=== PATIENT | female | born 1960 | race African-American/Black ===

== ENCOUNTER 2016-06-01 12:29 | Emergency (ER) | payer MEDICAID | END 2016-06-01 15:54 | disposition home or self-care (01) | LOC: D.ER 12:29 | DX: F20.9 Schizophrenia, unspecified (principal); E87.6 Hypokalemia ==

== ENCOUNTER 2016-10-04 21:25 | Emergency (ER) | payer MEDICAID ==
[2016-10-04 22:10] LABS: BASOPHILS 0.1 % (0-2); EOSINOPHILS 0.2 % (0-7); HEMATOCRIT 42.6 % (36.0-48.0); HEMOGLOBIN 14.7 g/dL (12-16); IMMATURE GRANULOCYTES 0.2 % (0-5); LYMPHOCYTES 22.4 % (15-50); MCH 27.8 pg (26.0-34.0); MCHC 34.5 g/dL (31.0-37.0); MCV 80.5 fL (80.0-100.0); MEAN PLATELET VOLUME 10.3 fL (7.4-10.4); MONOCYTES 4.9 % (2-11); NEUTROPHILS 72.2 % (40-80); PLATELET COUNT 196 10x3/uL (130-400); RBC 5.29 10x6/uL (4.00-5.40); RDW 14.7 % (11.5-14.5); WBC 13.2 10x3/uL (4.8-10.8)
[2016-10-04 22:26] LABS: ANION GAP 14.3 mmol/L (8-16); BILIRUBIN - TOTAL 0.24 mg/dL (0.2-1.3); CALCIUM 9.8 mg/dL (8.5-10.1); CARBON DIOXIDE 28.3 mmol/L (21.0-32.0); CREATININE - SERUM 1.1 mg/dL (0.6-1.3); POTASSIUM - SERUM 3.6 mmol/L (3.5-5.1)
[2016-10-04 22:27] LABS: APPEARANCE CLEAR (CLEAR); BILIRUBIN NEGATIVE (NEGATIVE); COLOR STRAW (YELLOW); GLUCOSE NEGATIVE (NEGATIVE); KETONE NEGATIVE (NEGATIVE); LEUKOCYTE ESTERASE NEGATIVE (NEGATIVE); NITRITE NEGATIVE (NEGATIVE); PROTEIN NEGATIVE (NEGATIVE); UROBILINOGEN NORMAL (NORMAL)
[2016-10-04 22:36] LABS: UDS - AMPHET NEGATIVE QUAL (NEGATIVE); UDS - BARB NEGATIVE QUAL (NEGATIVE); UDS - BENZO NEGATIVE QUAL (NEGATIVE); UDS - COCAINE NEGATIVE QUAL (NEGATIVE); UDS - METH NEGATIVE QUAL (NEGATIVE); UDS - OPIATE NEGATIVE QUAL (NEGATIVE); UDS - PCP NEGATIVE QUAL (NEGATIVE); UDS - THC NEGATIVE QUAL (NEGATIVE)
== END 2016-10-05 01:20 | disposition home or self-care (01) ==
LOC: D.ER 21:25
PROVIDERS: Family Medicine
DX: F20.9 Schizophrenia, unspecified (principal); F23 Brief psychotic disorder

== ENCOUNTER 2017-02-10 22:08 | Emergency (ER) | payer MEDICAID | END 2017-02-10 23:28 | disposition home or self-care (01) | LOC: D.ER 22:08 | DX: F23 Brief psychotic disorder (principal) ==

== ENCOUNTER 2017-02-26 12:49 | Emergency (ER) | payer MEDICAID | END 2017-02-26 14:22 | disposition home or self-care (01) | LOC: D.ER 12:49 | DX: I10 Essential (primary) hypertension (principal); F17.200 Nicotine dependence, unspecified, uncomplicated ==

== ENCOUNTER 2017-08-02 20:10 | Emergency (ER) | payer SELFPAY | END 2017-08-02 21:03 | disposition home or self-care (01) | LOC: D.ER 20:10 | DX: M25.561 Pain in right knee (principal); V03.90XA Pedestrian on foot injured in collision with car, pick-up truck or van, unspecified whether traffic or nontraffic accident, initial encounter; Y93.01 Activity, walking, marching and hiking; Y92.410 Unspecified street and highway as the place of occurrence of the external cause; I10 Essential (primary) hypertension; Z86.59 Personal history of other mental and behavioral disorders; F17.200 Nicotine dependence, unspecified, uncomplicated ==

== ENCOUNTER 2017-09-15 16:36 | Emergency (ER) | payer OTHER | END 2017-09-15 20:26 | disposition home or self-care (01) | LOC: D.ER 16:36 | DX: Z86.59 Personal history of other mental and behavioral disorders (principal); I10 Essential (primary) hypertension; F17.200 Nicotine dependence, unspecified, uncomplicated ==

== ENCOUNTER 2018-01-05 11:57 | Emergency (ER) | payer OTHER ==
[~2018-01-05] VITALS: Ht 167.6 cm; Wt 59.1 kg
[2018-01-05 11:58] VITALS: Ht 167.6 cm; Wt 59.1 kg
[2018-01-05 12:44] LABS: BASOPHILS 0.3 % (0-2); EOSINOPHILS 0.4 % (0-7); HEMATOCRIT 36.4 % (36.0-48.0); HEMOGLOBIN 12.3 g/dL (12-16); IMMATURE GRANULOCYTES 0.1 % (0-5); LYMPHOCYTES 33.2 % (15-50); MCH 26.6 pg (26.0-34.0); MCHC 33.8 g/dL (31.0-37.0); MCV 78.6 fL (80.0-100.0); MEAN PLATELET VOLUME 10.4 fL (7.4-10.4); MONOCYTES 8.3 % (2-11); NEUTROPHILS 57.7 % (40-80); PLATELET COUNT 183 10x3/uL (130-400); RBC 4.63 10x6/uL (4.00-5.40); RDW 14.7 % (11.5-14.5); WBC 7.3 10x3/uL (4.8-10.8)
[2018-01-05 13:02] LABS: ALBUMIN 3.6 g/dL (3.4-5.0); ALKALINE PHOSPHATASE 99 U/L (46-116); ALT (SGPT) 15 U/L (10-68); BILIRUBIN - TOTAL 0.59 mg/dL (0.2-1.3); CALC OSMOLALITY 283 mosm/kg (275-300); CALCIUM 8.7 mg/dL (8.5-10.1); CARBON DIOXIDE 26.6 mmol/L (21.0-32.0); CHLORIDE - SERUM 107 mmol/L (98-107); CREATININE - SERUM 0.8 mg/dL (0.6-1.3); POTASSIUM - SERUM 3.1 mmol/L (3.5-5.1); PROTEIN - SERUM 6.6 g/dL (6.4-8.2); SODIUM 143 mmol/L (136-145); UREA NITROGEN 12 mg/dL (7-18); eGFR NON AFRICAN AMERICAN 79 mL/min (90-120)
[2018-01-05 13:03] LABS: GLUCOSE 84 mg/dL (74-106)
[2018-01-05 13:41] LABS: APPEARANCE CLEAR (CLEAR); COLOR YELLOW (YELLOW)
[2018-01-05 13:42] LABS: BILIRUBIN NEGATIVE (NEGATIVE); GLUCOSE NEGATIVE (NEGATIVE); KETONE NEGATIVE (NEGATIVE); NITRITE NEGATIVE (NEGATIVE); PROTEIN NEGATIVE (NEGATIVE); SPECIFIC GRAVITY 1.015 (1.005-1.020); UROBILINOGEN NORMAL (NORMAL)
[2018-01-05 15:37] VITALS: BP 184/093
== END 2018-01-05 15:38 | disposition home or self-care (01) ==
LOC: D.ER 11:57
PROVIDERS: Family Medicine
DX: T67.5XXA Heat exhaustion, unspecified, initial encounter (principal); X58.XXXA Exposure to other specified factors, initial encounter; Y93.89 Activity, other specified; Y92.410 Unspecified street and highway as the place of occurrence of the external cause; E11.9 Type 2 diabetes mellitus without complications; I10 Essential (primary) hypertension

== ENCOUNTER 2018-02-12 21:14 | Emergency (ER) | payer OTHER ==
[~2018-02-12] VITALS: Ht 167.6 cm; Wt 55.5 kg
[2018-02-12 21:16] VITALS: Ht 167.6 cm; Wt 55.5 kg
[2018-02-12] MEDS ORDERED: LOPRESSOR25 MG PO (21:21)
[2018-02-12] MEDS ORDERED: METOPROLOL TART25 MG PO (21:45)
[2018-02-12 21:51] VITALS: BP 166/98
== END 2018-02-12 21:54 | disposition home or self-care (01) ==
LOC: D.ER 21:14
DX: I10 Essential (primary) hypertension (principal); E11.9 Type 2 diabetes mellitus without complications

== ENCOUNTER 2018-03-17 08:19 | Emergency (ER) | payer OTHER ==
[~2018-03-17] VITALS: Ht 167.6 cm; Wt 50.0 kg
[~2018-03-17 08:19] MED LIST: LOPRESSOR25 MG PO; METOPROLOL TART25 MG PO
[2018-03-17 08:23] VITALS: BP 159/95; Ht 167.6 cm; Wt 50.0 kg
[2018-03-17 08:54] LABS: BASOPHILS 0.2 % (0-2); EOSINOPHILS 0.5 % (0-7); HEMATOCRIT 40.9 % (36.0-48.0); IMMATURE GRANULOCYTES 0.2 % (0-5); LYMPHOCYTES 39.1 % (15-50); MCH 27.7 pg (26.0-34.0); MCHC 34.2 g/dL (31.0-37.0); MEAN PLATELET VOLUME 10.3 fL (7.4-10.4); MONOCYTES 7.3 % (2-11); NEUTROPHILS 52.7 % (40-80); PLATELET COUNT 174 10x3/uL (130-400); RBC 5.05 10x6/uL (4.00-5.40); RDW 14.1 % (11.5-14.5); WBC 6.3 10x3/uL (4.8-10.8)
[2018-03-17 09:07] LABS: ALBUMIN 3.7 g/dL (3.4-5.0); ANION GAP 11.2 mmol/L (8-16); BILIRUBIN - TOTAL 0.45 mg/dL (0.2-1.3); CALCIUM 9.5 mg/dL (8.5-10.1); CARBON DIOXIDE 29.3 mmol/L (21.0-32.0); CREATININE - SERUM 0.9 mg/dL (0.6-1.3); POTASSIUM - SERUM 3.5 mmol/L (3.5-5.1); PROTEIN - SERUM 7.4 g/dL (6.4-8.2)
[2018-03-17 09:49] LABS: APPEARANCE CLEAR (CLEAR); BILIRUBIN NEGATIVE (NEGATIVE); COLOR YELLOW (YELLOW); GLUCOSE NEGATIVE (NEGATIVE); KETONE NEGATIVE (NEGATIVE); NITRITE NEGATIVE (NEGATIVE); PROTEIN NEGATIVE (NEGATIVE); UROBILINOGEN NORMAL (NORMAL)
== END 2018-03-17 13:18 | disposition home or self-care (01) ==
LOC: D.ER 08:19
PROVIDERS: Family Medicine
DX: J06.9 Acute upper respiratory infection, unspecified (principal); R05 Cough; I10 Essential (primary) hypertension; E11.9 Type 2 diabetes mellitus without complications

== ENCOUNTER 2018-03-29 00:45 | Emergency (ER) | payer OTHER ==
[2018-03-17 08:23] VITALS: Ht 167.6 cm; Wt 45.5 kg
[~2018-03-29] VITALS: Ht 167.6 cm; Wt 45.5 kg
[2018-03-29 00:54] VITALS: BP 163/89
== END 2018-03-29 01:51 | disposition home or self-care (01) ==
LOC: D.ER 00:45
DX: R10.9 Unspecified abdominal pain (principal); F20.9 Schizophrenia, unspecified; M79.81 Nontraumatic hematoma of soft tissue; I10 Essential (primary) hypertension; F17.200 Nicotine dependence, unspecified, uncomplicated

== ENCOUNTER 2018-04-11 16:21 | Emergency (ER) | payer OTHER ==
[2018-03-29 00:54] VITALS: BMI 16.1
== END 2018-04-11 16:50 | disposition left against medical advice (07) ==
LOC: D.ER 16:21
DX: M79.18 Myalgia, other site (principal)

== ENCOUNTER 2018-04-30 08:58 | Emergency (ER) | payer OTHER ==
[2018-04-30 09:07] VITALS: Ht 167.6 cm
[2018-04-30 10:39] LABS: BASOPHILS 0.1 % (0-2); EOSINOPHILS 0.1 % (0-7); HEMATOCRIT 36.8 % (36.0-48.0); HEMOGLOBIN 12.4 g/dL (12-16); IMMATURE GRANULOCYTES 0.1 % (0-5); LYMPHOCYTES 30.1 % (15-50); MCH 26.8 pg (26.0-34.0); MCHC 33.7 g/dL (31.0-37.0); MCV 79.5 fL (80.0-100.0); MEAN PLATELET VOLUME 10.1 fL (7.4-10.4); NEUTROPHILS 64.6 % (40-80); PLATELET COUNT 182 10x3/uL (130-400); RBC 4.63 10x6/uL (4.00-5.40); RDW 14.4 % (11.5-14.5); WBC 6.7 10x3/uL (4.8-10.8)
[2018-04-30 10:53] LABS: ALBUMIN 3.3 g/dL (3.4-5.0); ALKALINE PHOSPHATASE 95 U/L (46-116); ALT (SGPT) 14 U/L (10-68); BILIRUBIN - TOTAL 0.39 mg/dL (0.2-1.3); CALC OSMOLALITY 280 mosm/kg (275-300); CALCIUM 8.9 mg/dL (8.5-10.1); CARBON DIOXIDE 27.3 mmol/L (21.0-32.0); CHLORIDE - SERUM 104 mmol/L (98-107); CREATININE - SERUM 0.7 mg/dL (0.6-1.3); GLUCOSE 96 mg/dL (74-106); POTASSIUM - SERUM 3.3 mmol/L (3.5-5.1); PROTEIN - SERUM 6.7 g/dL (6.4-8.2); SODIUM 141 mmol/L (136-145); UREA NITROGEN 12 mg/dL (7-18); eGFR NON AFRICAN AMERICAN > 90 mL/min (90-120)
[2018-04-30 11:11] LABS: UDS - AMPHET NEGATIVE QUAL (NEGATIVE); UDS - BARB NEGATIVE QUAL (NEGATIVE); UDS - BENZO NEGATIVE QUAL (NEGATIVE); UDS - COCAINE NEGATIVE QUAL (NEGATIVE); UDS - OPIATE NEGATIVE QUAL (NEGATIVE); UDS - PCP NEGATIVE QUAL (NEGATIVE); UDS - THC NEGATIVE QUAL (NEGATIVE)
[2018-04-30 11:18] LABS: APPEARANCE CLEAR (CLEAR); BILIRUBIN NEGATIVE (NEGATIVE); COLOR YELLOW (YELLOW); EPITHELIAL CELLS 0-5 /hpf (0-5); GLUCOSE NEGATIVE (NEGATIVE); KETONE NEGATIVE (NEGATIVE); NITRITE NEGATIVE (NEGATIVE); PROTEIN TRACE mg/dL (NEGATIVE); RED CELLS - URINE NONE SEEN /hpf (0-5); SPECIFIC GRAVITY 1.025 (1.005-1.020); UROBILINOGEN NORMAL (NORMAL); WHITE CELLS - URINE NSEEN /hpf (0-5)
[2018-04-30 13:38] VITALS: BP 144/72
== END 2018-04-30 14:54 ==
LOC: D.ER 08:58
PROVIDERS: Family Medicine
DX: F23 Brief psychotic disorder (principal); I10 Essential (primary) hypertension

== ENCOUNTER 2018-05-05 17:48 | Emergency (ER) | payer OTHER ==
[~2018-05-05] VITALS: Ht 167.6 cm; Wt 61.4 kg
[2018-05-05 18:40] VITALS: Ht 167.6 cm; Wt 61.4 kg
== END 2018-05-05 19:49 | disposition home or self-care (01) ==
LOC: D.ER 17:48
DX: I10 Essential (primary) hypertension (principal)

== ENCOUNTER 2018-06-12 23:36 | Emergency (ER) | payer OTHER ==
[~2018-06-12] VITALS: Ht 167.6 cm; Wt 50.0 kg
[2018-06-12 23:39] VITALS: Ht 167.6 cm; Wt 50.0 kg
[2018-06-13 03:31] VITALS: BP 118/67
== END 2018-06-13 03:34 | disposition home or self-care (01) ==
LOC: D.ER 23:36
DX: F20.9 Schizophrenia, unspecified (principal); E11.9 Type 2 diabetes mellitus without complications; I10 Essential (primary) hypertension

== ENCOUNTER 2018-06-18 23:33 | Emergency (ER) | payer OTHER ==
[2018-06-12 23:39] VITALS: BMI 17.8
== END 2018-06-18 23:46 | disposition left against medical advice (07) ==
LOC: D.ER 23:33
DX: R07.9 Chest pain, unspecified (principal)

== ENCOUNTER 2018-07-04 17:08 | Emergency (ER) | payer OTHER ==
[~2018-07-04] VITALS: Ht 167.6 cm; Wt 50.0 kg
[2018-07-04 17:40] VITALS: BP 171/96; Ht 167.6 cm; Wt 50.0 kg
== END 2018-07-04 19:53 | disposition left against medical advice (07) ==
LOC: D.ER 17:08
DX: R09.89 Other specified symptoms and signs involving the circulatory and respiratory systems (principal); J02.9 Acute pharyngitis, unspecified

== ENCOUNTER 2018-07-07 01:34 | Emergency (ER) | payer OTHER ==
[~2018-07-07] VITALS: Ht 167.6 cm; Wt 45.5 kg
[2018-07-07 01:59] VITALS: BP 159/109; Ht 167.6 cm; Wt 45.5 kg
== END 2018-07-07 02:23 | disposition home or self-care (01) ==
LOC: D.ER 01:34
DX: Z76.0 Encounter for issue of repeat prescription (principal)

== ENCOUNTER 2018-07-08 00:14 | Emergency (ER) | payer OTHER ==
[~2018-07-08] VITALS: Ht 167.6 cm; Wt 45.5 kg
[2018-07-08 00:17] VITALS: BP 166/93; Ht 167.6 cm; Wt 45.5 kg
[2018-07-08 01:29] LABS: BASOPHILS 0.1 % (0-2); EOSINOPHILS 2.7 % (0-7); HEMATOCRIT 38.5 % (36.0-48.0); HEMOGLOBIN 13.1 g/dL (12-16); IMMATURE GRANULOCYTES 0.1 % (0-5); LYMPHOCYTES 25.2 % (15-50); MCH 27.3 pg (26.0-34.0); MCV 80.2 fL (80.0-100.0); MEAN PLATELET VOLUME 9.8 fL (7.4-10.4); MONOCYTES 6.7 % (2-11); NEUTROPHILS 65.2 % (40-80); PLATELET COUNT 211 10x3/uL (130-400)
[2018-07-08 01:33] LABS: APTT 24.6 SECONDS (22.8-39.4); INR 0.98 (0.85-1.17); PROTIME 12.5 SECONDS (11.6-15.0)
[2018-07-08 01:44] LABS: ALBUMIN 3.8 g/dL (3.4-5.0); ALKALINE PHOSPHATASE 122 U/L (46-116); ALT (SGPT) 18 U/L (10-68); BILIRUBIN - TOTAL 0.31 mg/dL (0.2-1.3); CALC OSMOLALITY 285 mosm/kg (275-300); CALCIUM 9.1 mg/dL (8.5-10.1); CARBON DIOXIDE 29.4 mmol/L (21.0-32.0); CHLORIDE - SERUM 103 mmol/L (98-107); CREATININE - SERUM 0.9 mg/dL (0.6-1.3); GLUCOSE 112 mg/dL (74-106); POTASSIUM - SERUM 3.6 mmol/L (3.5-5.1); PROTEIN - SERUM 7.6 g/dL (6.4-8.2); SODIUM 143 mmol/L (136-145); UREA NITROGEN 13 mg/dL (7-18); eGFR NON AFRICAN AMERICAN 69 mL/min (90-120)
[2018-07-08 01:55] LABS: CKMB 1.5 U/L (0.0-3.6); CREATINE KINASE 87 UL (21-215); MAGNESIUM - SERUM 1.9 mg/dL (1.8-2.4); TROPONIN-I < 0.017 ng/mL (0.000-0.060)
[2018-07-08 01:55] LABS: APPEARANCE CLEAR (CLEAR); BILIRUBIN NEGATIVE (NEGATIVE); COLOR YELLOW (YELLOW); GLUCOSE 50 mg/dL (NEGATIVE); KETONE NEGATIVE (NEGATIVE); NITRITE NEGATIVE (NEGATIVE); PROTEIN NEGATIVE (NEGATIVE); SPECIFIC GRAVITY 1.015 (1.005-1.020); UROBILINOGEN NORMAL (NORMAL)
[2018-07-08 02:01] LABS: UDS - AMPHET NEGATIVE QUAL (NEGATIVE); UDS - BARB NEGATIVE QUAL (NEGATIVE); UDS - BENZO NEGATIVE QUAL (NEGATIVE); UDS - COCAINE NEGATIVE QUAL (NEGATIVE); UDS - OPIATE NEGATIVE QUAL (NEGATIVE); UDS - PCP NEGATIVE QUAL (NEGATIVE); UDS - THC NEGATIVE QUAL (NEGATIVE)
== END 2018-07-08 02:53 | disposition left against medical advice (07) ==
LOC: D.ER 00:14
PROVIDERS: Family Medicine
DX: R07.9 Chest pain, unspecified (principal); Z76.5 Malingerer [conscious simulation]; E11.9 Type 2 diabetes mellitus without complications; I10 Essential (primary) hypertension; F17.200 Nicotine dependence, unspecified, uncomplicated

== ENCOUNTER 2018-07-10 19:36 | Emergency (ER) | payer OTHER ==
[~2018-07-10] VITALS: Ht 167.6 cm; Wt 45.5 kg
[2018-07-10 20:07] VITALS: BP 132/85; Ht 167.6 cm; Wt 45.5 kg
== END 2018-07-10 22:05 | disposition home or self-care (01) ==
LOC: D.ER 19:36
DX: F41.9 Anxiety disorder, unspecified (principal)

== ENCOUNTER 2018-07-14 12:00 | Emergency (ER) | payer OTHER ==
[~2018-07-14] VITALS: Ht 167.6 cm; Wt 45.5 kg
[2018-07-14 12:15] VITALS: Ht 167.6 cm; Wt 45.5 kg
[2018-07-14] MEDS ORDERED: MONODOX100 MG PO (15:03)
[2018-07-14] MEDS ORDERED: PREDNISONE20 MG PO (15:04)
[2018-07-14 15:36] VITALS: BP 132/78
== END 2018-07-14 15:38 | disposition home or self-care (01) ==
LOC: D.ER 12:00
DX: J06.9 Acute upper respiratory infection, unspecified (principal); R05 Cough; R10.2 Pelvic and perineal pain; E11.9 Type 2 diabetes mellitus without complications; I10 Essential (primary) hypertension; F17.200 Nicotine dependence, unspecified, uncomplicated

== ENCOUNTER 2018-07-25 12:50 | Emergency (ER) | payer OTHER ==
[~2018-07-25] VITALS: Ht 167.6 cm; Wt 46.4 kg
[~2018-07-25 12:50] MED LIST changes: +MONODOX100 MG PO; +PREDNISONE20 MG PO
[2018-07-25 12:53] VITALS: Ht 167.6 cm; Wt 46.4 kg
[2018-07-25 14:11] LABS: UDS - AMPHET NEGATIVE QUAL (NEGATIVE); UDS - BARB NEGATIVE QUAL (NEGATIVE); UDS - BENZO NEGATIVE QUAL (NEGATIVE); UDS - COCAINE NEGATIVE QUAL (NEGATIVE); UDS - OPIATE NEGATIVE QUAL (NEGATIVE); UDS - PCP NEGATIVE QUAL (NEGATIVE); UDS - THC NEGATIVE QUAL (NEGATIVE)
[2018-07-25 14:25] LABS: APPEARANCE CLEAR (CLEAR); COLOR STRAW (YELLOW); GLUCOSE 50 mg/dL (NEGATIVE); KETONE SMALL mg/dL (NEGATIVE); NITRITE NEGATIVE (NEGATIVE); PROTEIN NEGATIVE (NEGATIVE)
[2018-07-25 14:26] LABS: BACTERIA MODERATE /hpf (NONE SEEN); BILIRUBIN NEGATIVE (NEGATIVE); EPITHELIAL CELLS 0-5 /hpf (0-5); MUCUS <1+ /lpf (NONE SEEN); RED CELLS - URINE OCC /hpf (0-5); UROBILINOGEN NORMAL (NORMAL)
[2018-07-25 16:44] LABS: BASOPHILS 0.1 % (0-2); EOSINOPHILS 2.9 % (0-7); HEMOGLOBIN 11.9 g/dL (12-16); IMMATURE GRANULOCYTES 0.1 % (0-5); LYMPHOCYTES 34.2 % (15-50); MCH 26.9 pg (26.0-34.0); MCHC 33.1 g/dL (31.0-37.0); MCV 81.4 fL (80.0-100.0); MEAN PLATELET VOLUME 10.1 fL (7.4-10.4); MONOCYTES 8.4 % (2-11); NEUTROPHILS 54.3 % (40-80); PLATELET COUNT 170 10x3/uL (130-400); RBC 4.42 10x6/uL (4.00-5.40); RDW 14.6 % (11.5-14.5); WBC 7.9 10x3/uL (4.8-10.8)
[2018-07-25 16:59] LABS: ALBUMIN 3.3 g/dL (3.4-5.0); ANION GAP 8.3 mmol/L (8-16); BILIRUBIN - TOTAL 0.35 mg/dL (0.2-1.3); CALCIUM 8.7 mg/dL (8.5-10.1); CARBON DIOXIDE 33.1 mmol/L (21.0-32.0); POTASSIUM - SERUM 3.4 mmol/L (3.5-5.1); PROTEIN - SERUM 6.6 g/dL (6.4-8.2)
[2018-07-26 01:18] VITALS: BP 165/89
== END 2018-07-26 01:43 ==
LOC: D.ER 12:50
PROVIDERS: Emergency Medicine
DX: F32.9 Major depressive disorder, single episode, unspecified (principal); E11.9 Type 2 diabetes mellitus without complications; I10 Essential (primary) hypertension; R45.86 Emotional lability; R45.851 Suicidal ideations

== ENCOUNTER 2018-08-04 12:20 | Emergency (ER) | payer OTHER ==
[~2018-08-04] VITALS: Ht 167.6 cm; Wt 82.7 kg
[2018-08-04 12:28] VITALS: BP 190/108; Ht 167.6 cm; Wt 82.7 kg
[2018-08-04 13:04] LABS: APPEARANCE CLEAR (CLEAR); BILIRUBIN NEGATIVE (NEGATIVE); COLOR YELLOW (YELLOW); GLUCOSE NEGATIVE (NEGATIVE); KETONE NEGATIVE (NEGATIVE); NITRITE NEGATIVE (NEGATIVE); PROTEIN NEGATIVE (NEGATIVE); SPECIFIC GRAVITY 1.015 (1.005-1.020); UROBILINOGEN NORMAL (NORMAL)
[2018-08-04 13:06] LABS: UDS - AMPHET NEGATIVE QUAL (NEGATIVE); UDS - BARB NEGATIVE QUAL (NEGATIVE); UDS - BENZO NEGATIVE QUAL (NEGATIVE); UDS - COCAINE NEGATIVE QUAL (NEGATIVE); UDS - OPIATE NEGATIVE QUAL (NEGATIVE); UDS - PCP NEGATIVE QUAL (NEGATIVE); UDS - THC NEGATIVE QUAL (NEGATIVE)
[2018-08-04] MEDS ORDERED: PROZAC20 MG PO (14:04)
[2018-08-04] MEDS ORDERED: GLUCOPHAGE500 MG PO (14:04)
[2018-08-04] MEDS ORDERED: LOPRESSOR25 MG PO (14:04)
== END 2018-08-04 15:17 | disposition home or self-care (01) ==
LOC: D.ER 12:20
PROVIDERS: Family Medicine
DX: Z86.59 Personal history of other mental and behavioral disorders (principal); F22 Delusional disorders; E11.9 Type 2 diabetes mellitus without complications; I10 Essential (primary) hypertension; Z91.14 Patient's other noncompliance with medication regimen

== ENCOUNTER 2018-08-06 05:12 | Emergency (ER) | payer OTHER ==
[~2018-08-06] VITALS: Ht 167.6 cm; Wt 54.5 kg
[~2018-08-06 05:12] MED LIST changes: +GLUCOPHAGE500 MG PO; +PROZAC20 MG PO
[2018-08-06 05:22] VITALS: BP 168/102; Ht 167.6 cm; Wt 54.5 kg
== END 2018-08-06 07:19 | disposition home or self-care (01) ==
LOC: D.ER 05:12
DX: S00.93XA Contusion of unspecified part of head, initial encounter (principal); W18.30XA Fall on same level, unspecified, initial encounter; Y93.89 Activity, other specified; Y92.22 Religious institution as the place of occurrence of the external cause; Z59.0 Homelessness

== ENCOUNTER 2018-08-12 08:25 | Emergency (ER) | payer OTHER ==
[~2018-08-12] VITALS: Ht 167.6 cm; Wt 54.5 kg
[2018-08-12 08:29] VITALS: Ht 167.6 cm; Wt 54.5 kg
[2018-08-12 10:36] VITALS: BP 174/100
== END 2018-08-12 10:37 | disposition home or self-care (01) ==
LOC: D.ER 08:25
DX: M79.672 Pain in left foot (principal); M79.671 Pain in right foot; Z59.0 Homelessness; T73.0XXA Starvation, initial encounter; X58.XXXA Exposure to other specified factors, initial encounter; M79.18 Myalgia, other site

== ENCOUNTER 2018-08-17 11:52 | Emergency (ER) | payer OTHER ==
[~2018-08-17] VITALS: Ht 167.6 cm; Wt 50.0 kg
[2018-08-17 11:55] VITALS: BP 171/94; Ht 167.6 cm; Wt 50.0 kg
[2018-08-17 12:49] LABS: APPEARANCE CLEAR (CLEAR); BILIRUBIN NEGATIVE (NEGATIVE); COLOR STRAW (YELLOW); GLUCOSE 100 mg/dL (NEGATIVE); KETONE NEGATIVE (NEGATIVE); NITRITE NEGATIVE (NEGATIVE); PROTEIN NEGATIVE (NEGATIVE); UROBILINOGEN NORMAL (NORMAL)
[2018-08-17 12:59] LABS: UDS - AMPHET NEGATIVE QUAL (NEGATIVE); UDS - BARB NEGATIVE QUAL (NEGATIVE); UDS - BENZO NEGATIVE QUAL (NEGATIVE); UDS - COCAINE NEGATIVE QUAL (NEGATIVE); UDS - OPIATE NEGATIVE QUAL (NEGATIVE); UDS - PCP NEGATIVE QUAL (NEGATIVE); UDS - THC NEGATIVE QUAL (NEGATIVE)
[2018-08-17 13:03] LABS: BASOPHILS 0.1 % (0-2); EOSINOPHILS 1.7 % (0-7); HEMATOCRIT 36.3 % (36.0-48.0); HEMOGLOBIN 11.9 g/dL (12-16); IMMATURE GRANULOCYTES 0.1 % (0-5); LYMPHOCYTES 35.3 % (15-50); MCHC 32.8 g/dL (31.0-37.0); MCV 82.3 fL (80.0-100.0); MEAN PLATELET VOLUME 10.3 fL (7.4-10.4); MONOCYTES 10.5 % (2-11); NEUTROPHILS 52.3 % (40-80); PLATELET COUNT 163 10x3/uL (130-400); RBC 4.41 10x6/uL (4.00-5.40); RDW 14.3 % (11.5-14.5); WBC 7.5 10x3/uL (4.8-10.8)
[2018-08-17 13:18] LABS: ALBUMIN 3.4 g/dL (3.4-5.0); ALKALINE PHOSPHATASE 111 U/L (46-116); ALT (SGPT) 12 U/L (10-68); BILIRUBIN - TOTAL 0.21 mg/dL (0.2-1.3); CALC OSMOLALITY 284 mosm/kg (275-300); CALCIUM 8.7 mg/dL (8.5-10.1); CARBON DIOXIDE 32.7 mmol/L (21.0-32.0); CHLORIDE - SERUM 105 mmol/L (98-107); CREATININE - SERUM 0.8 mg/dL (0.6-1.3); GLUCOSE 94 mg/dL (74-106); MAGNESIUM - SERUM 2.1 mg/dL (1.8-2.4); PROTEIN - SERUM 6.8 g/dL (6.4-8.2); SODIUM 142 mmol/L (136-145); UREA NITROGEN 18 mg/dL (7-18); eGFR NON AFRICAN AMERICAN 78 mL/min (90-120)
[2018-08-17 13:21] LABS: POTASSIUM - SERUM 2.9 mmol/L (3.5-5.1)
== END 2018-08-17 17:44 | disposition home or self-care (01) ==
LOC: D.ER 11:52
PROVIDERS: Emergency Medicine
DX: R44.0 Auditory hallucinations (principal); F41.9 Anxiety disorder, unspecified; E87.6 Hypokalemia

== ENCOUNTER 2018-08-19 03:49 | Emergency (ER) | payer OTHER ==
[~2018-08-19] VITALS: Ht 167.6 cm; Wt 72.6 kg
[2018-08-19 03:51] VITALS: Ht 167.6 cm; Wt 72.6 kg
[2018-08-19 06:43] VITALS: BP 122/79
== END 2018-08-19 06:43 | disposition home or self-care (01) ==
LOC: D.ER 03:49
DX: F29 Unspecified psychosis not due to a substance or known physiological condition (principal)

== ENCOUNTER 2018-08-22 22:22 | Emergency (ER) | payer OTHER ==
[~2018-08-22] VITALS: Ht 167.6 cm; Wt 54.4 kg
[2018-08-22 22:25] VITALS: Ht 167.6 cm; Wt 54.4 kg
[2018-08-22 23:55] VITALS: BP 132/74
[2018-08-23] MEDS ORDERED: VOLTAREN75 MG PO (11:38)
[2018-08-23] MEDS ORDERED: BACTRIM 400-801 TAB PO (11:38)
== END 2018-08-22 23:55 | disposition home or self-care (01) ==
LOC: D.ER 22:22
DX: T73.0XXA Starvation, initial encounter (principal); X58.XXXA Exposure to other specified factors, initial encounter; Z59.0 Homelessness; Z76.5 Malingerer [conscious simulation]

== ENCOUNTER 2018-08-23 10:49 | Emergency (ER) | payer OTHER ==
[~2018-08-23] VITALS: Ht 167.6 cm; Wt 50.0 kg
[2018-08-23 10:54] VITALS: BP 150/85; Ht 167.6 cm; Wt 50.0 kg
[2018-08-23] MEDS ORDERED: VOLTAREN75 MG PO (11:38)
[2018-08-23] MEDS ORDERED: BACTRIM 400-801 TAB PO (11:38)
== END 2018-08-23 14:18 | disposition home or self-care (01) ==
LOC: D.ER 10:49
DX: L03.116 Cellulitis of left lower limb (principal); L03.115 Cellulitis of right lower limb

== ENCOUNTER 2018-08-28 20:50 | Emergency (ER) | payer OTHER ==
[~2018-08-28] VITALS: Ht 167.6 cm; Wt 56.8 kg
[~2018-08-28 20:50] MED LIST changes: +BACTRIM 400-801 TAB PO; +VOLTAREN75 MG PO
[2018-08-28 20:54] VITALS: Ht 167.6 cm; Wt 56.8 kg
[2018-08-28 21:35] VITALS: BP 178/100
== END 2018-08-28 21:37 | disposition home or self-care (01) ==
LOC: D.ER 20:50
DX: F43.9 Reaction to severe stress, unspecified (principal); Z59.0 Homelessness

== ENCOUNTER 2018-08-30 10:47 | Emergency (ER) | payer OTHER ==
[~2018-08-30] VITALS: Ht 167.6 cm; Wt 50.0 kg
[2018-08-30 10:51] VITALS: Ht 167.6 cm; Wt 50.0 kg
[2018-08-30 11:39] LABS: BASOPHILS 0.1 % (0-2); EOSINOPHILS 0.7 % (0-7); HEMOGLOBIN 12.6 g/dL (12-16); IMMATURE GRANULOCYTES 0.1 % (0-5); LYMPHOCYTES 31.6 % (15-50); MCHC 33.2 g/dL (31.0-37.0); MCV 81.5 fL (80.0-100.0); MEAN PLATELET VOLUME 10.4 fL (7.4-10.4); MONOCYTES 6.7 % (2-11); NEUTROPHILS 60.8 % (40-80); PLATELET COUNT 193 10x3/uL (130-400); RBC 4.66 10x6/uL (4.00-5.40); RDW 14.1 % (11.5-14.5); WBC 7.1 10x3/uL (4.8-10.8)
[2018-08-30 11:50] LABS: ALBUMIN 3.5 g/dL (3.4-5.0); ALKALINE PHOSPHATASE 113 U/L (46-116); ALT (SGPT) 17 U/L (10-68); BILIRUBIN - TOTAL 0.23 mg/dL (0.2-1.3); CALC OSMOLALITY 292 mosm/kg (275-300); CALCIUM 8.9 mg/dL (8.5-10.1); CARBON DIOXIDE 30.5 mmol/L (21.0-32.0); CHLORIDE - SERUM 107 mmol/L (98-107); CREATININE - SERUM 0.9 mg/dL (0.6-1.3); GLUCOSE 134 mg/dL (74-106); POTASSIUM - SERUM 3.4 mmol/L (3.5-5.1); SODIUM 145 mmol/L (136-145); UREA NITROGEN 18 mg/dL (7-18); eGFR NON AFRICAN AMERICAN 69 mL/min (90-120)
[2018-08-30 11:51] LABS: APTT 26.4 SECONDS (22.8-39.4); INR 0.97 (0.85-1.17); PROTIME 12.4 SECONDS (11.6-15.0)
[2018-08-30 12:02] LABS: CREATINE KINASE 43 UL (21-215); TROPONIN-I < 0.017 ng/mL (0.000-0.060)
[2018-08-30] MEDS ORDERED: LISINOPRIL-HCT1 EAC4 PO (13:03)
[2018-08-30 13:32] VITALS: BP 136/83
== END 2018-08-30 13:36 | disposition home or self-care (01) ==
LOC: D.ER 10:47
PROVIDERS: Family Medicine
DX: F32.9 Major depressive disorder, single episode, unspecified (principal); I10 Essential (primary) hypertension; Z76.5 Malingerer [conscious simulation]; Z91.19 Patient's noncompliance with other medical treatment and regimen

== ENCOUNTER 2018-09-06 21:39 | Emergency (ER) | payer OTHER ==
[~2018-09-06] VITALS: Ht 167.6 cm; Wt 45.5 kg
[~2018-09-06 21:39] MED LIST changes: +LISINOPRIL-HCT1 EAC4 PO
[2018-09-06 21:53] VITALS: BP 194/97; Ht 167.6 cm; Wt 45.5 kg
[2018-09-06 22:33] LABS: APPEARANCE CLEAR (CLEAR); BILIRUBIN NEGATIVE (NEGATIVE); COLOR YELLOW (YELLOW); GLUCOSE 100 mg/dL (NEGATIVE); KETONE NEGATIVE (NEGATIVE); NITRITE NEGATIVE (NEGATIVE); PROTEIN NEGATIVE (NEGATIVE); UROBILINOGEN NORMAL (NORMAL)
== END 2018-09-06 23:25 | disposition home or self-care (01) ==
LOC: D.ER 21:39
PROVIDERS: Family Medicine
DX: R30.0 Dysuria (principal)

== ENCOUNTER 2018-10-11 13:08 | Emergency (ER) | payer OTHER ==
[~2018-10-11] VITALS: Ht 167.6 cm; Wt 50.0 kg
[2018-10-11 13:10] VITALS: BP 158/83; Ht 167.6 cm; Wt 50.0 kg
[2018-10-11] MEDS ORDERED: TOPROL XL25 MG (13:15)
== END 2018-10-11 14:56 | disposition home or self-care (01) ==
LOC: D.ER 13:08
DX: E11.9 Type 2 diabetes mellitus without complications (principal)

== ENCOUNTER 2018-11-11 08:29 | Emergency (ER) | payer OTHER ==
[~2018-11-11 08:29] MED LIST changes: +TOPROL XL25 MG
[2018-11-11 08:41] VITALS: Ht 167.6 cm
== END 2018-11-11 08:46 | disposition left against medical advice (07) ==
LOC: D.ER 08:29
DX: R45.851 Suicidal ideations (principal)

== ENCOUNTER 2018-11-13 00:45 | Emergency (ER) | payer OTHER ==
[~2018-11-13] VITALS: Ht 167.6 cm; Wt 50.0 kg
[2018-11-13 00:58] VITALS: Ht 167.6 cm; Wt 50.0 kg
[2018-11-13 02:50] VITALS: BP 185/75
[2018-11-13] MEDS ORDERED: TOPROL XL25 MG PO (06:07)
== END 2018-11-13 02:50 | disposition home or self-care (01) ==
LOC: D.ER 00:45
DX: R41.0 Disorientation, unspecified (principal)

== ENCOUNTER 2018-11-13 04:43 | Emergency (ER) | payer OTHER ==
[~2018-11-13] VITALS: Ht 167.6 cm; Wt 45.5 kg
[2018-11-13 04:48] VITALS: Ht 167.6 cm; Wt 45.5 kg
[2018-11-13] MEDS ORDERED: TOPROL XL25 MG PO (06:07)
[2018-11-13 06:27] VITALS: BP 155/84
== END 2018-11-13 06:28 | disposition home or self-care (01) ==
LOC: D.ER 04:43
DX: I10 Essential (primary) hypertension (principal)

== ENCOUNTER 2018-11-13 18:59 | Emergency (ER) | payer OTHER ==
[~2018-11-13] VITALS: Ht 167.6 cm; Wt 45.5 kg
[~2018-11-13 18:59] MED LIST changes: +TOPROL XL25 MG PO
[2018-11-13 19:04] VITALS: Ht 167.6 cm; Wt 45.5 kg
[2018-11-13 21:46] VITALS: BP 154/97
== END 2018-11-13 19:35 | disposition left against medical advice (07) ==
LOC: D.ER 18:59
DX: R41.82 Altered mental status, unspecified (principal)

== ENCOUNTER 2018-11-15 06:02 | Emergency (ER) | payer OTHER ==
[~2018-11-15] VITALS: Ht 167.6 cm; Wt 59.1 kg
[2018-11-15 06:06] VITALS: Ht 167.6 cm; Wt 59.1 kg
[2018-11-15 06:36] VITALS: BP 172/93
== END 2018-11-15 06:37 | disposition home or self-care (01) ==
LOC: D.ER 06:02
DX: F20.9 Schizophrenia, unspecified (principal); I10 Essential (primary) hypertension

== ENCOUNTER 2018-12-23 21:59 | Emergency (ER) | payer OTHER ==
[~2018-12-23] VITALS: Ht 167.6 cm; Wt 45.5 kg
[2018-12-23 22:28] VITALS: Ht 167.6 cm; Wt 45.5 kg
[2018-12-24 06:49] VITALS: BP 150/89
== END 2018-12-24 06:49 | disposition home or self-care (01) ==
LOC: D.ER 21:59
DX: F41.9 Anxiety disorder, unspecified (principal)

== ENCOUNTER 2018-12-26 11:33 | Emergency (ER) | payer OTHER ==
[2018-12-23 22:28] VITALS: BMI 16.1
== END 2018-12-26 11:49 | disposition left against medical advice (07) ==
LOC: D.ER 11:33
DX: R41.82 Altered mental status, unspecified (principal)

== ENCOUNTER 2019-01-04 18:52 | Emergency (ER) | payer OTHER ==
[2018-12-23 22:28] VITALS: BMI 16.1
[2019-01-05] MEDS ORDERED: METOPROLOL TART25 MG PO (22:47)
[2019-01-05] MEDS ORDERED: GLUCOPHAGE500 MG PO (22:47)
== END 2019-01-04 19:02 | disposition left against medical advice (07) ==
LOC: D.ER 18:52
DX: Z76.0 Encounter for issue of repeat prescription (principal)

== ENCOUNTER 2019-01-04 21:04 | Emergency (ER) | payer OTHER ==
[~2019-01-04] VITALS: Ht 167.6 cm; Wt 46.4 kg
[2019-01-04 21:20] VITALS: BP 157/97; Ht 167.6 cm; Wt 46.4 kg
[2019-01-05] MEDS ORDERED: METOPROLOL TART25 MG PO (22:47)
[2019-01-05] MEDS ORDERED: GLUCOPHAGE500 MG PO (22:47)
== END 2019-01-04 22:54 | disposition left against medical advice (07) ==
LOC: D.ER 21:04
DX: Z76.0 Encounter for issue of repeat prescription (principal)

== ENCOUNTER 2019-01-05 19:05 | Emergency (ER) | payer OTHER ==
[~2019-01-05] VITALS: Ht 167.6 cm; Wt 41.8 kg
[2019-01-05 19:27] VITALS: Ht 167.6 cm; Wt 41.8 kg
[2019-01-05 21:45] VITALS: BP 169/95
[2019-01-05] MEDS ORDERED: GLUCOPHAGE500 MG PO (22:47)
[2019-01-05] MEDS ORDERED: METOPROLOL TART25 MG PO (22:47)
== END 2019-01-05 23:00 | disposition home or self-care (01) ==
LOC: D.ER 19:05
DX: Z76.0 Encounter for issue of repeat prescription (principal); E11.9 Type 2 diabetes mellitus without complications; I10 Essential (primary) hypertension; F17.210 Nicotine dependence, cigarettes, uncomplicated

== ENCOUNTER 2019-01-06 04:00 | Emergency (ER) | payer OTHER ==
[~2019-01-06] VITALS: Ht 167.6 cm; Wt 75.0 kg
[2019-01-06 04:02] VITALS: BP 180/98; Ht 167.6 cm; Wt 75.0 kg
== END 2019-01-06 04:25 | disposition home or self-care (01) ==
LOC: D.ER 04:00
DX: Z76.5 Malingerer [conscious simulation] (principal)

== ENCOUNTER 2019-01-17 00:30 | Emergency (ER) | payer OTHER ==
[~2019-01-17] VITALS: Ht 167.6 cm; Wt 61.4 kg
[2019-01-17 01:01] VITALS: Ht 167.6 cm; Wt 61.4 kg
[2019-01-17 02:36] LABS: APPEARANCE CLEAR (CLEAR); BILIRUBIN NEGATIVE (NEGATIVE); COLOR YELLOW (YELLOW); GLUCOSE NEGATIVE (NEGATIVE); KETONE NEGATIVE (NEGATIVE); NITRITE NEGATIVE (NEGATIVE); PROTEIN NEGATIVE (NEGATIVE); SPECIFIC GRAVITY 1.015 (1.005-1.020); UROBILINOGEN NORMAL (NORMAL)
[2019-01-17 02:38] LABS: BACTERIA NONE SEEN /hpf (NONE SEEN); EPITHELIAL CELLS 0-5 /hpf (0-5); RED CELLS - URINE 0-5 /hpf (0-5); WHITE CELLS - URINE 0-5 /hpf (0-5)
[2019-01-17] MEDS ORDERED: MACROBID100 MG PO (02:42)
[2019-01-17 03:07] VITALS: BP 124/73
[2019-01-18] MEDS ORDERED: FERROUS SULFAT325 MG PO (15:56)
[2019-01-19 22:06] LABS: CHLAMYDIA TRACHOMATIS, NAA Negative (Negative)
== END 2019-01-17 03:07 | disposition home or self-care (01) ==
LOC: D.ER 00:30
PROVIDERS: Family Medicine
DX: N39.0 Urinary tract infection, site not specified (principal); N76.0 Acute vaginitis; B96.89 Other specified bacterial agents as the cause of diseases classified elsewhere

== ENCOUNTER 2019-01-18 15:00 | Emergency (ER) | payer OTHER ==
[~2019-01-18] VITALS: Ht 167.6 cm; Wt 46.4 kg
[~2019-01-18 15:00] MED LIST changes: +MACROBID100 MG PO
[2019-01-18 15:04] VITALS: BP 141/78; Ht 167.6 cm; Wt 46.4 kg
[2019-01-18] MEDS ORDERED: FERROUS SULFAT325 MG PO (15:56)
== END 2019-01-18 16:02 | disposition home or self-care (01) ==
LOC: D.ER 15:00
DX: Z76.0 Encounter for issue of repeat prescription (principal)

== ENCOUNTER 2019-01-25 17:05 | Emergency (ER) | payer OTHER ==
[~2019-01-25] VITALS: Ht 167.6 cm; Wt 54.4 kg
[~2019-01-25 17:05] MED LIST changes: +FERROUS SULFAT325 MG PO
[2019-01-25 18:05] VITALS: BP 166/97; Ht 167.6 cm; Wt 54.4 kg
== END 2019-01-25 19:19 | disposition home or self-care (01) ==
LOC: D.ER 17:05
DX: Z76.5 Malingerer [conscious simulation] (principal)

== ENCOUNTER 2019-01-30 03:32 | Emergency (ER) | payer OTHER ==
[~2019-01-30] VITALS: Ht 167.6 cm; Wt 45.5 kg
[2019-01-30 03:35] VITALS: Ht 167.6 cm; Wt 45.5 kg
[2019-01-30 03:55] LABS: APPEARANCE CLEAR (CLEAR); BILIRUBIN NEGATIVE (NEGATIVE); COLOR YELLOW (YELLOW); GLUCOSE NEGATIVE (NEGATIVE); KETONE NEGATIVE (NEGATIVE); NITRITE NEGATIVE (NEGATIVE); PROTEIN NEGATIVE (NEGATIVE); SPECIFIC GRAVITY 1.015 (1.005-1.020); UROBILINOGEN NORMAL (NORMAL)
[2019-01-30 04:29] VITALS: BP 160/97
== END 2019-01-30 04:27 | disposition home or self-care (01) ==
LOC: D.ER 03:32
PROVIDERS: Emergency Medicine
DX: T67.5XXA Heat exhaustion, unspecified, initial encounter (principal); X58.XXXA Exposure to other specified factors, initial encounter; Y93.89 Activity, other specified; Y92.89 Other specified places as the place of occurrence of the external cause

== ENCOUNTER 2019-02-03 17:13 | Emergency (ER) | payer OTHER ==
[2019-01-30 03:35] VITALS: BMI 16.1
== END 2019-02-03 17:55 | disposition left against medical advice (07) ==
LOC: D.ER 17:13
DX: Z59.9 Problem related to housing and economic circumstances, unspecified (principal)

== ENCOUNTER 2019-02-03 18:30 | Emergency (ER) | payer OTHER ==
[~2019-02-03] VITALS: Ht 167.6 cm; Wt 50.0 kg
[2019-02-03 18:37] VITALS: Ht 167.6 cm; Wt 50.0 kg
[2019-02-03 20:55] VITALS: BP 153/83
== END 2019-02-03 20:55 | disposition home or self-care (01) ==
LOC: D.ER 18:30
DX: Z59.9 Problem related to housing and economic circumstances, unspecified (principal)

== ENCOUNTER 2019-02-07 19:33 | Emergency (ER) | payer OTHER ==
[~2019-02-07] VITALS: Ht 167.6 cm; Wt 45.5 kg
[2019-02-07 19:34] VITALS: Ht 167.6 cm; Wt 45.5 kg
[2019-02-07 21:13] VITALS: BP 164/85
[2019-02-08] MEDS ORDERED: GLUCOPHAGE500 MG PO (01:10)
[2019-02-08] MEDS ORDERED: TOPROL XL25 MG PO (01:10)
== END 2019-02-07 21:13 | disposition home or self-care (01) ==
LOC: D.ER 19:33
DX: I10 Essential (primary) hypertension (principal); E11.65 Type 2 diabetes mellitus with hyperglycemia

== ENCOUNTER 2019-02-08 00:46 | Emergency (ER) | payer OTHER ==
[~2019-02-08] VITALS: Ht 167.6 cm; Wt 45.5 kg
[2019-02-08 00:53] VITALS: Ht 167.6 cm; Wt 45.5 kg
[2019-02-08] MEDS ORDERED: GLUCOPHAGE500 MG PO (01:10)
[2019-02-08] MEDS ORDERED: TOPROL XL25 MG PO (01:10)
[2019-02-08 03:49] VITALS: BP 182/88
== END 2019-02-08 03:50 | disposition home or self-care (01) ==
LOC: D.ER 00:46
DX: Z76.5 Malingerer [conscious simulation] (principal); I10 Essential (primary) hypertension

== ENCOUNTER 2019-02-15 17:58 | Emergency (ER) | payer OTHER ==
[~2019-02-15] VITALS: Ht 167.6 cm; Wt 54.5 kg
[2019-02-15 18:07] VITALS: Ht 167.6 cm; Wt 54.5 kg
[2019-02-15 22:32] VITALS: BP 178/99
== END 2019-02-15 23:21 | disposition home or self-care (01) ==
LOC: D.ER 17:58
DX: Z76.5 Malingerer [conscious simulation] (principal); Z59.0 Homelessness; E11.9 Type 2 diabetes mellitus without complications; I10 Essential (primary) hypertension

== ENCOUNTER 2019-02-16 18:04 | Emergency (ER) | payer OTHER ==
[~2019-02-16] VITALS: Ht 167.6 cm; Wt 50.0 kg
[2019-02-16 18:12] VITALS: BP 156/79; Ht 167.6 cm; Wt 50.0 kg
--- NOTE | 2019-02-16 19:38 | NUR ---
DR CLARK NOTIFIED AND REVIEWED PT BEHAVIOR AND ASSESSMENT RESULTS, PT IS A LOW RISK PER DR CLARK. DR CLARK STATED TO GIVE RESOURCES TO PT AT TIME OF DISCHARGE. NO FURTHER ORDERS AT THIS TIME, REVIEWED RESOURCES WITH PT AND SHE VERBALIZED UNDERSTANDING.
== END 2019-02-16 20:04 | disposition home or self-care (01) ==
LOC: D.ER 18:04
DX: R45.1 Restlessness and agitation (principal); F41.8 Other specified anxiety disorders; E11.9 Type 2 diabetes mellitus without complications; I10 Essential (primary) hypertension; K21.9 Gastro-esophageal reflux disease without esophagitis

== ENCOUNTER 2019-02-18 16:58 | Emergency (ER) | payer OTHER ==
[~2019-02-18] VITALS: Ht 167.6 cm; Wt 61.4 kg
[2019-02-18 17:00] VITALS: Ht 167.6 cm; Wt 61.4 kg
[2019-02-18 17:34] VITALS: BP 126/74
== END 2019-02-18 17:45 | disposition home or self-care (01) ==
LOC: D.ER 16:58
DX: Z76.5 Malingerer [conscious simulation] (principal); E11.9 Type 2 diabetes mellitus without complications

== ENCOUNTER 2019-02-20 11:35 | Emergency (ER) | payer OTHER ==
[~2019-02-20] VITALS: Ht 167.6 cm; Wt 52.3 kg
[2019-02-20 11:45] VITALS: Ht 167.6 cm; Wt 52.3 kg
[2019-02-20 13:57] VITALS: BP 166/84
[2019-02-20] MEDS ORDERED: TORADOL10 MG PO (14:09)
== END 2019-02-20 14:23 | disposition home or self-care (01) ==
LOC: D.ER 11:35
DX: M25.561 Pain in right knee (principal)

== ENCOUNTER 2019-02-22 07:49 | Emergency (ER) | payer OTHER ==
[~2019-02-22] VITALS: Ht 167.6 cm; Wt 52.3 kg
[~2019-02-22 07:49] MED LIST changes: +TORADOL10 MG PO
[2019-02-22 07:51] VITALS: BP 163/86; Ht 167.6 cm; Wt 52.3 kg
[2019-02-22 08:44] LABS: APPEARANCE CLEAR (CLEAR); BILIRUBIN NEGATIVE (NEGATIVE); COLOR YELLOW (YELLOW); GLUCOSE 50 mg/dL (NEGATIVE); KETONE SMALL mg/dL (NEGATIVE); NITRITE NEGATIVE (NEGATIVE); PROTEIN NEGATIVE (NEGATIVE); SPECIFIC GRAVITY 1.015 (1.005-1.020); UROBILINOGEN NORMAL (NORMAL)
== END 2019-02-22 09:34 | disposition home or self-care (01) ==
LOC: D.ER 07:49
PROVIDERS: Family Medicine
DX: T73.0XXA Starvation, initial encounter (principal); X58.XXXA Exposure to other specified factors, initial encounter; Z76.5 Malingerer [conscious simulation]; R53.1 Weakness; E11.9 Type 2 diabetes mellitus without complications

== ENCOUNTER 2019-02-24 00:53 | Emergency (ER) | payer OTHER ==
[~2019-02-24] VITALS: Ht 167.6 cm; Wt 61.8 kg
[2019-02-24 00:58] VITALS: Ht 167.6 cm; Wt 61.8 kg
[2019-02-24 01:55] VITALS: BP 148/78
== END 2019-02-24 01:55 | disposition home or self-care (01) ==
LOC: D.ER 00:53
DX: I10 Essential (primary) hypertension (principal)

== ENCOUNTER 2019-02-25 09:06 | Emergency (ER) | payer OTHER ==
[2019-02-25 09:06] VITALS: BP 184/99; Ht 167.6 cm
== END 2019-02-25 09:18 | disposition left against medical advice (07) ==
LOC: D.ER 09:06
DX: R44.3 Hallucinations, unspecified (principal)

== ENCOUNTER 2019-02-26 15:32 | Emergency (ER) | payer OTHER ==
[~2019-02-26] VITALS: Ht 167.6 cm; Wt 75.0 kg
[2019-02-26 15:34] VITALS: Ht 167.6 cm; Wt 75.0 kg
[2019-02-26 16:42] VITALS: BP 152/84
== END 2019-02-26 16:43 | disposition home or self-care (01) ==
LOC: D.ER 15:32
DX: Z76.5 Malingerer [conscious simulation] (principal); Z59.0 Homelessness; E11.9 Type 2 diabetes mellitus without complications; I10 Essential (primary) hypertension; F32.9 Major depressive disorder, single episode, unspecified

== ENCOUNTER 2019-03-01 16:08 | Emergency (ER) | payer OTHER ==
[~2019-03-01] VITALS: Ht 167.6 cm; Wt 53.2 kg
[2019-03-01 16:48] VITALS: BP 159/92; Ht 167.6 cm; Wt 53.2 kg
== END 2019-03-01 16:55 | disposition home or self-care (01) ==
LOC: D.ER 16:08
DX: E11.9 Type 2 diabetes mellitus without complications (principal); I10 Essential (primary) hypertension; F32.9 Major depressive disorder, single episode, unspecified; F20.9 Schizophrenia, unspecified

== ENCOUNTER 2019-03-02 09:31 | Emergency (ER) | payer OTHER ==
[~2019-03-02] VITALS: Ht 167.6 cm; Wt 45.5 kg
[2019-03-02 09:35] VITALS: BP 165/85; Ht 167.6 cm; Wt 45.5 kg
== END 2019-03-02 10:30 | disposition home or self-care (01) ==
LOC: D.ER 09:31
DX: Z59.0 Homelessness (principal); E11.9 Type 2 diabetes mellitus without complications; I10 Essential (primary) hypertension; F17.213 Nicotine dependence, cigarettes, with withdrawal

== ENCOUNTER 2019-03-07 22:14 | Emergency (ER) | payer OTHER ==
[~2019-03-07] VITALS: Ht 167.6 cm; Wt 54.5 kg
[2019-03-07 22:15] VITALS: Ht 167.6 cm; Wt 54.5 kg
[2019-03-07] MEDS ORDERED: GLUCOPHAGE500 MG PO (22:33)
[2019-03-07] MEDS ORDERED: METOPROLOL TART50 MG PO (22:33)
[2019-03-07 23:20] VITALS: BP 184/112
[2019-03-08] MEDS ORDERED: GLUCOTROL 5 MG T5 MG PO (16:57)
== END 2019-03-07 23:10 | disposition home or self-care (01) ==
LOC: D.ER 22:14
DX: I10 Essential (primary) hypertension (principal); E11.9 Type 2 diabetes mellitus without complications; Z91.14 Patient's other noncompliance with medication regimen

== ENCOUNTER 2019-03-08 01:06 | Emergency (ER) | payer OTHER ==
[~2019-03-08] VITALS: Ht 167.6 cm; Wt 59.1 kg
[~2019-03-08 01:06] MED LIST changes: +METOPROLOL TART50 MG PO
[2019-03-08 01:08] VITALS: BP 180/99; Ht 167.6 cm; Wt 59.1 kg
[2019-03-08] MEDS ORDERED: GLUCOTROL 5 MG T5 MG PO (16:57)
== END 2019-03-08 01:28 | disposition left against medical advice (07) ==
LOC: D.ER 01:06
DX: F20.9 Schizophrenia, unspecified (principal)

== ENCOUNTER 2019-03-08 16:16 | Emergency (ER) | payer OTHER ==
[~2019-03-08] VITALS: Ht 167.6 cm; Wt 50.0 kg
[2019-03-08 16:24] VITALS: BP 168/105; Ht 167.6 cm; Wt 50.0 kg
[2019-03-08] MEDS ORDERED: GLUCOTROL 5 MG T5 MG PO (16:57)
== END 2019-03-08 17:03 | disposition home or self-care (01) ==
LOC: D.ER 16:16
DX: Z76.5 Malingerer [conscious simulation] (principal)

== ENCOUNTER 2019-03-10 20:17 | Emergency (ER) | payer OTHER ==
[~2019-03-10] VITALS: Ht 167.6 cm; Wt 50.0 kg
[~2019-03-10 20:17] MED LIST changes: +GLUCOTROL 5 MG T5 MG PO
[2019-03-10 20:23] VITALS: Ht 167.6 cm; Wt 50.0 kg
[2019-03-10 20:36] VITALS: BP 180/93
== END 2019-03-10 20:42 | disposition left against medical advice (07) ==
LOC: D.ER 20:17
DX: R55 Syncope and collapse (principal)

== ENCOUNTER 2019-03-11 20:39 | Emergency (ER) | payer OTHER ==
[~2019-03-11] VITALS: Ht 167.6 cm; Wt 63.6 kg
[2019-03-11 20:45] VITALS: Ht 167.6 cm; Wt 63.6 kg
[2019-03-11 22:05] VITALS: BP 147/80
== END 2019-03-11 22:05 | disposition home or self-care (01) ==
LOC: D.ER 20:39
DX: Z00.00 Encounter for general adult medical examination without abnormal findings (principal)

== ENCOUNTER 2019-03-12 18:00 | Emergency (ER) | payer OTHER ==
[~2019-03-12] VITALS: Ht 167.6 cm; Wt 50.0 kg
[2019-03-12 18:02] VITALS: Ht 167.6 cm; Wt 50.0 kg
--- NOTE | 2019-03-12 18:43 | NUR ---
PT REFUSED LEFT KNEE XRAY 03/12/2019 @ 1845. CRIS PRAJAPATI NOTIFIED /CX
[2019-03-12 18:50] VITALS: BP 170/89
== END 2019-03-12 18:50 | disposition left against medical advice (07) ==
LOC: D.ER 18:00
DX: Z71.1 Person with feared health complaint in whom no diagnosis is made (principal); M25.562 Pain in left knee; F17.210 Nicotine dependence, cigarettes, uncomplicated

== ENCOUNTER 2019-03-24 20:00 | Emergency (ER) | payer OTHER ==
[~2019-03-24] VITALS: Ht 167.6 cm; Wt 52.2 kg
[2019-03-24 20:01] VITALS: Ht 167.6 cm; Wt 52.2 kg
[2019-03-24] MEDS ORDERED: ROBITUSSIN DM 110 ML PO (20:33)
[2019-03-24 20:55] VITALS: BP 174/82
== END 2019-03-24 20:55 | disposition home or self-care (01) ==
LOC: D.ER 20:00
DX: J06.9 Acute upper respiratory infection, unspecified (principal)

== ENCOUNTER 2019-03-29 10:07 | Emergency (ER) | payer OTHER ==
[~2019-03-29] VITALS: Ht 167.6 cm; Wt 50.0 kg
[~2019-03-29 10:07] MED LIST changes: +ROBITUSSIN DM 110 ML PO
[2019-03-29 10:21] VITALS: BP 168/93; Ht 167.6 cm; Wt 50.0 kg
== END 2019-03-29 11:19 | disposition home or self-care (01) ==
LOC: D.ER 10:07
DX: Z59.9 Problem related to housing and economic circumstances, unspecified (principal); T69.9XXA Effect of reduced temperature, unspecified, initial encounter

== ENCOUNTER 2019-03-30 11:56 | Emergency (ER) | payer OTHER ==
[~2019-03-30] VITALS: Ht 167.6 cm; Wt 50.0 kg
[2019-03-30 11:57] VITALS: BP 170/101; Ht 167.6 cm; Wt 50.0 kg
[2019-03-31] MEDS ORDERED: TAMIFLU75 MG PO (00:15)
== END 2019-03-30 13:20 | disposition left against medical advice (07) ==
LOC: D.ER 11:56
DX: F23 Brief psychotic disorder (principal)

== ENCOUNTER 2019-03-31 00:01 | Emergency (ER) | payer OTHER ==
[~2019-03-31] VITALS: Ht 167.6 cm; Wt 54.6 kg
[2019-03-31 00:04] VITALS: Ht 167.6 cm; Wt 54.6 kg
[2019-03-31] MEDS ORDERED: TAMIFLU75 MG PO (00:15)
[2019-03-31 00:41] VITALS: BP 150/97
== END 2019-03-31 00:41 | disposition home or self-care (01) ==
LOC: D.ER 00:01
DX: J11.1 Influenza due to unidentified influenza virus with other respiratory manifestations (principal); E11.9 Type 2 diabetes mellitus without complications; I10 Essential (primary) hypertension; F17.210 Nicotine dependence, cigarettes, uncomplicated

== ENCOUNTER 2019-04-03 12:20 | Emergency (ER) | payer OTHER ==
[~2019-04-03] VITALS: Ht 167.6 cm; Wt 52.3 kg
[~2019-04-03 12:20] MED LIST changes: +TAMIFLU75 MG PO
[2019-04-03 13:00] VITALS: BP 159/99; Ht 167.6 cm; Wt 52.3 kg
== END 2019-04-03 14:27 | disposition home or self-care (01) ==
LOC: D.ER 12:20
DX: F41.9 Anxiety disorder, unspecified (principal); Z76.5 Malingerer [conscious simulation]; E11.9 Type 2 diabetes mellitus without complications; Z79.84 Long term (current) use of oral hypoglycemic drugs; I10 Essential (primary) hypertension; Z72.0 Tobacco use

== ENCOUNTER 2019-04-04 13:57 | Emergency (ER) | payer OTHER ==
[~2019-04-04] VITALS: Ht 167.6 cm; Wt 63.6 kg
[2019-04-04 14:01] VITALS: Ht 167.6 cm; Wt 63.6 kg
[2019-04-05] MEDS ORDERED: ACETAMINOPHEN325 MG PO (20:17)
[2019-04-05] MEDS ORDERED: OMNICEF300 MG PO (23:39)
== END 2019-04-04 14:50 | disposition left against medical advice (07) ==
LOC: D.ER 13:57
DX: Z71.1 Person with feared health complaint in whom no diagnosis is made (principal)

== ENCOUNTER 2019-04-05 00:05 | Emergency (ER) | payer OTHER ==
[~2019-04-05] VITALS: Ht 167.6 cm; Wt 72.7 kg
[2019-04-05 00:06] VITALS: Ht 167.6 cm; Wt 72.7 kg
[2019-04-05 00:51] VITALS: BP 157/116
[2019-04-05] MEDS ORDERED: ACETAMINOPHEN325 MG PO (20:17)
[2019-04-05] MEDS ORDERED: OMNICEF300 MG PO (23:39)
== END 2019-04-05 00:51 | disposition home or self-care (01) ==
LOC: D.ER 00:05
DX: I10 Essential (primary) hypertension (principal); E11.9 Type 2 diabetes mellitus without complications

== ENCOUNTER 2019-04-05 18:32 | Emergency (ER) | payer OTHER ==
[~2019-04-05] VITALS: Ht 167.6 cm; Wt 50.0 kg
[2019-04-05 18:43] VITALS: Ht 167.6 cm; Wt 50.0 kg
[2019-04-05] MEDS ORDERED: ACETAMINOPHEN325 MG PO (20:17)
[2019-04-05 20:25] VITALS: BP 174/82
[2019-04-05] MEDS ORDERED: OMNICEF300 MG PO (23:39)
== END 2019-04-05 20:26 | disposition home or self-care (01) ==
LOC: D.ER 18:32
DX: R51 Headache (principal); E11.9 Type 2 diabetes mellitus without complications

== ENCOUNTER 2019-04-05 23:22 | Emergency (ER) | payer OTHER ==
[~2019-04-05] VITALS: Ht 167.6 cm; Wt 52.3 kg
[~2019-04-05 23:22] MED LIST changes: +ACETAMINOPHEN325 MG PO
[2019-04-05 23:27] VITALS: BP 176/102; Ht 167.6 cm; Wt 52.3 kg
[2019-04-05] MEDS ORDERED: OMNICEF300 MG PO (23:39)
== END 2019-04-05 23:47 | disposition home or self-care (01) ==
LOC: D.ER 23:22
DX: J32.9 Chronic sinusitis, unspecified (principal); R51 Headache

== ENCOUNTER 2019-04-06 15:57 | Emergency (ER) | payer OTHER ==
[~2019-04-06] VITALS: Ht 167.6 cm; Wt 68.2 kg
[~2019-04-06 15:57] MED LIST changes: +OMNICEF300 MG PO
[2019-04-06 16:14] VITALS: Ht 167.6 cm; Wt 68.2 kg
[2019-04-06 18:40] VITALS: BP 169/103
== END 2019-04-06 18:30 | disposition home or self-care (01) ==
LOC: D.ER 15:57
DX: I10 Essential (primary) hypertension (principal); Z59.0 Homelessness

== ENCOUNTER 2019-04-08 00:05 | Emergency (ER) | payer OTHER ==
[~2019-04-08] VITALS: Ht 167.6 cm; Wt 75.0 kg
[2019-04-08 00:07] VITALS: Ht 167.6 cm; Wt 75.0 kg
[2019-04-08 00:25] VITALS: BP 168/90
== END 2019-04-08 00:27 | disposition home or self-care (01) ==
LOC: D.ER 00:05
DX: T69.8XXA Other specified effects of reduced temperature, initial encounter (principal); Z59.0 Homelessness

== ENCOUNTER 2019-04-08 17:19 | Emergency (ER) | payer OTHER ==
[~2019-04-08] VITALS: Ht 167.6 cm; Wt 52.3 kg
[2019-04-08 17:27] VITALS: BP 165/89; Ht 167.6 cm; Wt 52.3 kg
== END 2019-04-08 18:08 | disposition left against medical advice (07) ==
LOC: D.ER 17:19
DX: R10.9 Unspecified abdominal pain (principal); E11.9 Type 2 diabetes mellitus without complications; Z79.84 Long term (current) use of oral hypoglycemic drugs; I10 Essential (primary) hypertension; Z72.0 Tobacco use

== ENCOUNTER 2019-04-09 05:22 | Emergency (ER) | payer OTHER ==
[~2019-04-09] VITALS: Ht 167.6 cm; Wt 72.7 kg
[2019-04-09 05:25] VITALS: Ht 167.6 cm; Wt 72.7 kg
[2019-04-09 05:35] VITALS: BP 190/100
== END 2019-04-09 05:33 | disposition home or self-care (01) ==
LOC: D.ER 05:22
DX: R45.851 Suicidal ideations (principal); I10 Essential (primary) hypertension; Z72.0 Tobacco use

== ENCOUNTER 2019-04-09 23:24 | Emergency (ER) | payer OTHER ==
[2019-04-09 23:30] VITALS: BP 171/95; Ht 167.6 cm
== END 2019-04-09 23:39 | disposition left against medical advice (07) ==
LOC: D.ER 23:24
DX: R45.851 Suicidal ideations (principal)

== ENCOUNTER 2019-04-10 05:16 | Emergency (ER) | payer OTHER ==
[~2019-04-10] VITALS: Ht 167.6 cm; Wt 68.2 kg
[2019-04-10 05:18] VITALS: Ht 167.6 cm; Wt 68.2 kg
[2019-04-10 05:53] LABS: UDS - AMPHET NEGATIVE QUAL (NEGATIVE); UDS - BARB NEGATIVE QUAL (NEGATIVE); UDS - BENZO NEGATIVE QUAL (NEGATIVE); UDS - COCAINE NEGATIVE QUAL (NEGATIVE); UDS - OPIATE NEGATIVE QUAL (NEGATIVE); UDS - PCP NEGATIVE QUAL (NEGATIVE); UDS - THC NEGATIVE QUAL (NEGATIVE)
[2019-04-10 06:06] LABS: APPEARANCE CLEAR (CLEAR); BILIRUBIN NEGATIVE (NEGATIVE); COLOR YELLOW (YELLOW); GLUCOSE NEGATIVE (NEGATIVE); KETONE NEGATIVE (NEGATIVE); NITRITE NEGATIVE (NEGATIVE); PROTEIN TRACE mg/dL (NEGATIVE); SPECIFIC GRAVITY 1.015 (1.005-1.020); UROBILINOGEN NORMAL (NORMAL)
[2019-04-10 06:07] LABS: BACTERIA MODERATE /hpf (NEGATIVE); EPITHELIAL CELLS 0-5 /hpf (0-5); RED CELLS - URINE 0-5 /hpf (0-5); WHITE CELLS - URINE 0-5 /hpf (NEGATIVE)
[2019-04-10 06:47] VITALS: BP 169/97
== END 2019-04-10 06:47 | disposition home or self-care (01) ==
LOC: D.ER 05:16
PROVIDERS: Emergency Medicine
DX: Z79.899 Other long term (current) drug therapy (principal); Z59.0 Homelessness; I10 Essential (primary) hypertension; E46 Unspecified protein-calorie malnutrition; Z72.0 Tobacco use

== ENCOUNTER 2019-04-13 10:35 | Emergency (ER) | payer OTHER ==
[~2019-04-13] VITALS: Ht 167.6 cm; Wt 52.3 kg
[2019-04-13 10:37] VITALS: BP 151/95; Ht 167.6 cm; Wt 52.3 kg
[2019-04-13] MEDS ORDERED: VOLTAREN75 MG PO (11:52)
== END 2019-04-13 13:03 | disposition home or self-care (01) ==
LOC: D.ER 10:35
DX: R51 Headache (principal); Y09 Assault by unspecified means; I10 Essential (primary) hypertension; Z72.0 Tobacco use; E11.9 Type 2 diabetes mellitus without complications; Z79.84 Long term (current) use of oral hypoglycemic drugs

== ENCOUNTER 2019-04-14 17:04 | Emergency (ER) | payer OTHER ==
[~2019-04-14] VITALS: Ht 167.6 cm; Wt 68.2 kg
[2019-04-14 17:06] VITALS: BP 176/99; Ht 167.6 cm; Wt 68.2 kg
== END 2019-04-14 17:35 | disposition left against medical advice (07) ==
LOC: D.ER 17:04
DX: F41.9 Anxiety disorder, unspecified (principal); Z53.29 Procedure and treatment not carried out because of patient's decision for other reasons; I10 Essential (primary) hypertension; Z72.0 Tobacco use; E11.9 Type 2 diabetes mellitus without complications; Z79.84 Long term (current) use of oral hypoglycemic drugs

== ENCOUNTER 2019-04-16 10:08 | Emergency (ER) | payer OTHER ==
[~2019-04-16] VITALS: Ht 167.6 cm; Wt 75.0 kg
[2019-04-16 10:10] VITALS: BP 163/74; Ht 167.6 cm; Wt 75.0 kg
[2019-04-17] MEDS ORDERED: NORVASC10 MG PO (01:09)
== END 2019-04-16 11:15 | disposition home or self-care (01) ==
LOC: D.ER 10:08
DX: Z59.0 Homelessness (principal); E11.9 Type 2 diabetes mellitus without complications; Z79.84 Long term (current) use of oral hypoglycemic drugs; I10 Essential (primary) hypertension; F20.9 Schizophrenia, unspecified

== ENCOUNTER 2019-04-17 00:08 | Emergency (ER) | payer OTHER ==
[~2019-04-17] VITALS: Ht 167.6 cm; Wt 52.3 kg
[2019-04-17 00:10] VITALS: BP 184/89; Ht 167.6 cm; Wt 52.3 kg
[2019-04-17] MEDS ORDERED: NORVASC10 MG PO (01:09)
[2019-04-18] MEDS ORDERED: IBUPROFEN800 MG PO (20:51)
== END 2019-04-17 01:44 | disposition home or self-care (01) ==
LOC: D.ER 00:08
DX: I10 Essential (primary) hypertension (principal); Z72.0 Tobacco use; E11.8 Type 2 diabetes mellitus with unspecified complications; Z79.84 Long term (current) use of oral hypoglycemic drugs

== ENCOUNTER 2019-04-18 19:59 | Emergency (ER) | payer OTHER ==
[~2019-04-18] VITALS: Ht 167.6 cm; Wt 59.1 kg
[~2019-04-18 19:59] MED LIST changes: +NORVASC10 MG PO
[2019-04-18 20:01] VITALS: Ht 167.6 cm; Wt 59.1 kg
[2019-04-18] MEDS ORDERED: IBUPROFEN800 MG PO (20:51)
[2019-04-18 21:27] VITALS: BP 172/88
== END 2019-04-18 21:27 | disposition home or self-care (01) ==
LOC: D.ER 19:59
DX: R52 Pain, unspecified (principal); Z76.5 Malingerer [conscious simulation]; I10 Essential (primary) hypertension; Z72.0 Tobacco use; E11.9 Type 2 diabetes mellitus without complications; Z79.84 Long term (current) use of oral hypoglycemic drugs

== ENCOUNTER 2019-04-19 22:11 | Emergency (ER) | payer OTHER ==
[~2019-04-19] VITALS: Ht 167.6 cm; Wt 52.3 kg
[~2019-04-19 22:11] MED LIST changes: +IBUPROFEN800 MG PO
[2019-04-19 22:30] VITALS: Ht 167.6 cm; Wt 52.3 kg
[2019-04-20] MEDS ORDERED: ACETAMINOPHEN325 MG PO (01:11)
[2019-04-20 01:22] VITALS: BP 172/84
[2019-04-21] MEDS ORDERED: glipizide (13:37)
== END 2019-04-20 01:22 | disposition home or self-care (01) ==
LOC: D.ER 22:11
DX: R51 Headache (principal); Z59.0 Homelessness; I10 Essential (primary) hypertension; Z72.0 Tobacco use; E11.8 Type 2 diabetes mellitus with unspecified complications; Z79.84 Long term (current) use of oral hypoglycemic drugs

== ENCOUNTER 2019-04-21 13:34 | Emergency (ER) | payer OTHER ==
[~2019-04-21] VITALS: Ht 167.6 cm; Wt 50.0 kg
[2019-04-21 13:35] VITALS: BP 184/99; Ht 167.6 cm; Wt 50.0 kg
[2019-04-21] MEDS ORDERED: glipizide (13:37)
== END 2019-04-21 15:02 | disposition home or self-care (01) ==
LOC: D.ER 13:34
DX: Z59.0 Homelessness (principal); F32.9 Major depressive disorder, single episode, unspecified; F20.9 Schizophrenia, unspecified; E11.9 Type 2 diabetes mellitus without complications; Z79.84 Long term (current) use of oral hypoglycemic drugs; I10 Essential (primary) hypertension; Z72.0 Tobacco use

== ENCOUNTER 2019-04-23 05:16 | Emergency (ER) | payer OTHER ==
[~2019-04-23] VITALS: Ht 167.6 cm; Wt 63.6 kg
[~2019-04-23 05:16] MED LIST changes: +glipizide
[2019-04-23 05:23] VITALS: Ht 167.6 cm; Wt 63.6 kg
[2019-04-23 05:58] VITALS: BP 183/110
[2019-04-23] MEDS ORDERED: ACETAMINOPHEN325 MG PO (21:32)
== END 2019-04-23 05:58 | disposition home or self-care (01) ==
LOC: D.ER 05:16
DX: F32.9 Major depressive disorder, single episode, unspecified (principal); Z13.9 Encounter for screening, unspecified; E11.9 Type 2 diabetes mellitus without complications; Z79.84 Long term (current) use of oral hypoglycemic drugs; I10 Essential (primary) hypertension

== ENCOUNTER 2019-04-23 21:11 | Emergency (ER) | payer OTHER ==
[~2019-04-23] VITALS: Ht 167.6 cm; Wt 77.3 kg
[2019-04-23 21:12] VITALS: BP 193/110; Ht 167.6 cm; Wt 77.3 kg
[2019-04-23] MEDS ORDERED: ACETAMINOPHEN325 MG PO (21:32)
== END 2019-04-23 22:28 | disposition home or self-care (01) ==
LOC: D.ER 21:11
DX: R51 Headache (principal); Z76.5 Malingerer [conscious simulation]; Z91.14 Patient's other noncompliance with medication regimen; I10 Essential (primary) hypertension; R46.89 Other symptoms and signs involving appearance and behavior

== ENCOUNTER 2019-04-26 17:56 | Emergency (ER) | payer OTHER ==
[~2019-04-26] VITALS: Ht 167.6 cm; Wt 50.0 kg
[2019-04-26 18:25] VITALS: BP 160/96; Ht 167.6 cm; Wt 50.0 kg
[2019-04-26] MEDS ORDERED: GLUCOTROL 5 MG T5 MG PO (19:09)
[2019-04-26] MEDS ORDERED: METOPROLOL TART50 MG PO (19:09)
[2019-04-26] MEDS ORDERED: IBUPROFEN800 MG PO (19:12)
== END 2019-04-26 20:30 | disposition home or self-care (01) ==
LOC: D.ER 17:56
DX: Z76.0 Encounter for issue of repeat prescription (principal); Z76.5 Malingerer [conscious simulation]; Z59.0 Homelessness; E11.9 Type 2 diabetes mellitus without complications; Z79.84 Long term (current) use of oral hypoglycemic drugs; I10 Essential (primary) hypertension

== ENCOUNTER 2019-04-26 23:34 | Emergency (ER) | payer OTHER ==
[~2019-04-26] VITALS: Ht 167.6 cm; Wt 63.6 kg
[2019-04-26 23:48] VITALS: Ht 167.6 cm; Wt 63.6 kg
== END 2019-04-27 00:21 | disposition left against medical advice (07) ==
LOC: D.ER 23:34
DX: Z76.5 Malingerer [conscious simulation] (principal); Z59.0 Homelessness; Z53.29 Procedure and treatment not carried out because of patient's decision for other reasons; F20.89 Other schizophrenia; I10 Essential (primary) hypertension; Z72.0 Tobacco use; E11.9 Type 2 diabetes mellitus without complications; Z79.84 Long term (current) use of oral hypoglycemic drugs

== ENCOUNTER 2019-05-01 17:54 | Emergency (ER) | payer OTHER ==
[~2019-05-01] VITALS: Ht 167.6 cm; Wt 72.7 kg
[2019-05-01 17:59] VITALS: BP 152/97; Ht 167.6 cm; Wt 72.7 kg
== END 2019-05-01 18:51 | disposition left against medical advice (07) ==
LOC: D.ER 17:54
DX: R46.89 Other symptoms and signs involving appearance and behavior (principal)

== ENCOUNTER 2019-05-03 23:22 | Emergency (ER) | payer OTHER ==
[~2019-05-03] VITALS: Ht 167.6 cm; Wt 68.2 kg
[2019-05-03 23:33] VITALS: Ht 167.6 cm; Wt 68.2 kg
[2019-05-04 00:07] VITALS: BP 179/105
== END 2019-05-04 00:07 | disposition home or self-care (01) ==
LOC: D.ER 23:22
DX: R51 Headache (principal); E11.9 Type 2 diabetes mellitus without complications; I10 Essential (primary) hypertension

== ENCOUNTER 2019-05-05 19:21 | Emergency (ER) | payer OTHER ==
[~2019-05-05] VITALS: Ht 167.6 cm; Wt 77.3 kg
[2019-05-05 19:28] VITALS: BP 194/104; Ht 167.6 cm; Wt 77.3 kg
[2019-05-06] MEDS ORDERED: IBUPROFEN800 MG PO (16:19)
[2019-05-06] MEDS ORDERED: METOPROLOL TART50 MG PO (16:19)
[2019-05-06] MEDS ORDERED: GLUCOTROL 5 MG T5 MG PO (16:19)
== END 2019-05-05 20:00 | disposition left against medical advice (07) ==
LOC: D.ER 19:21
DX: R51 Headache (principal)

== ENCOUNTER → 2019-05-06 13:19 | Emergency (ER) | payer OTHER ==
[2019-05-05 19:28] VITALS: BMI 27.5
== END | disposition left against medical advice (07) ==
LOC: D.ER 13:19
DX: E16.2 Hypoglycemia, unspecified (principal)

== ENCOUNTER 2019-05-06 14:43 | Emergency (ER) | payer OTHER ==
[~2019-05-06] VITALS: Ht 167.6 cm; Wt 55.5 kg
[2019-05-06 14:54] VITALS: Ht 167.6 cm; Wt 55.5 kg
[2019-05-06] MEDS ORDERED: IBUPROFEN800 MG PO (16:19)
[2019-05-06] MEDS ORDERED: METOPROLOL TART50 MG PO (16:19)
[2019-05-06] MEDS ORDERED: GLUCOTROL 5 MG T5 MG PO (16:19)
[2019-05-06 16:55] VITALS: BP 172/97
== END 2019-05-06 16:56 | disposition home or self-care (01) ==
LOC: D.ER 14:43
DX: I10 Essential (primary) hypertension (principal); E11.9 Type 2 diabetes mellitus without complications; Z72.0 Tobacco use; Z79.84 Long term (current) use of oral hypoglycemic drugs

== ENCOUNTER 2019-05-10 09:34 | Emergency (ER) | payer OTHER ==
[~2019-05-10] VITALS: Ht 167.6 cm; Wt 54.5 kg
[2019-05-10 09:36] VITALS: Ht 167.6 cm; Wt 54.5 kg
[2019-05-10 10:02] VITALS: BP 170/100
== END 2019-05-10 10:02 | disposition home or self-care (01) ==
LOC: D.ER 09:34
DX: Z76.5 Malingerer [conscious simulation] (principal); R53.83 Other fatigue; I10 Essential (primary) hypertension; E11.9 Type 2 diabetes mellitus without complications; Z79.84 Long term (current) use of oral hypoglycemic drugs

== ENCOUNTER 2019-05-15 20:40 | Emergency (ER) | payer OTHER ==
[~2019-05-15] VITALS: Ht 167.6 cm; Wt 63.6 kg
[2019-05-15 20:43] VITALS: BP 154/84; Ht 167.6 cm; Wt 63.6 kg
[2019-05-15] MEDS ORDERED: [UNRECOGNIZED DRUG - REMARK] (20:44)
[2019-05-15] MEDS ORDERED: METOPROLOL TART50 MG PO (20:46)
[2019-05-16] MEDS ORDERED: TRIAMTERENE-HC1 EAC6 PO (19:22)
== END 2019-05-15 21:25 | disposition home or self-care (01) ==
LOC: D.ER 20:40
DX: E16.2 Hypoglycemia, unspecified (principal); I10 Essential (primary) hypertension; E11.9 Type 2 diabetes mellitus without complications; Z72.0 Tobacco use; Z79.84 Long term (current) use of oral hypoglycemic drugs

== ENCOUNTER 2019-05-16 18:36 | Emergency (ER) | payer OTHER ==
[~2019-05-16] VITALS: Ht 167.6 cm; Wt 54.5 kg
[~2019-05-16 18:36] MED LIST changes: +[UNRECOGNIZED DRUG - REMARK]
[2019-05-16 18:49] VITALS: BP 184/95; Ht 167.6 cm; Wt 54.5 kg
[2019-05-16] MEDS ORDERED: TRIAMTERENE-HC1 EAC6 PO (19:22)
== END 2019-05-16 19:35 | disposition home or self-care (01) ==
LOC: D.ER 18:36
DX: I10 Essential (primary) hypertension (principal); Z72.0 Tobacco use; E11.9 Type 2 diabetes mellitus without complications; Z79.84 Long term (current) use of oral hypoglycemic drugs

== ENCOUNTER 2019-05-17 19:55 | Emergency (ER) | payer OTHER ==
[~2019-05-17] VITALS: Ht 167.6 cm; Wt 63.6 kg
[~2019-05-17 19:55] MED LIST changes: +TRIAMTERENE-HC1 EAC6 PO
[2019-05-17 20:01] VITALS: Ht 167.6 cm; Wt 63.6 kg
[2019-05-17 20:46] VITALS: BP 180/97
== END 2019-05-17 20:46 | disposition home or self-care (01) ==
LOC: D.ER 19:55
DX: E11.649 Type 2 diabetes mellitus with hypoglycemia without coma (principal); Z79.84 Long term (current) use of oral hypoglycemic drugs; I10 Essential (primary) hypertension; Z72.0 Tobacco use

== ENCOUNTER 2019-06-16 17:43 | Emergency (ER) | payer OTHER ==
[2019-06-16 17:52] VITALS: BP 180/105; Ht 167.6 cm
== END 2019-06-16 19:55 | disposition home or self-care (01) ==
LOC: D.ER 17:43
DX: Z00.00 Encounter for general adult medical examination without abnormal findings (principal); E11.9 Type 2 diabetes mellitus without complications; I10 Essential (primary) hypertension

== ENCOUNTER 2019-06-17 14:30 | Emergency (ER) | payer OTHER ==
[~2019-06-17] VITALS: Ht 167.6 cm; Wt 50.0 kg
[2019-06-17 14:38] VITALS: BP 164/90; Ht 167.6 cm; Wt 50.0 kg
== END 2019-06-17 16:00 | disposition left against medical advice (07) ==
LOC: D.ER 14:30
DX: E11.9 Type 2 diabetes mellitus without complications (principal)

== ENCOUNTER 2019-06-17 22:22 | Emergency (ER) | payer OTHER ==
[~2019-06-17] VITALS: Ht 167.6 cm; Wt 54.5 kg
[2019-06-17 22:27] VITALS: BP 161/104; Ht 167.6 cm; Wt 54.5 kg
== END 2019-06-17 23:45 | disposition home or self-care (01) ==
LOC: D.ER 22:22
DX: E11.649 Type 2 diabetes mellitus with hypoglycemia without coma (principal); I10 Essential (primary) hypertension; Z72.0 Tobacco use

== ENCOUNTER 2019-06-18 20:19 | Emergency (ER) | payer OTHER ==
[~2019-06-18] VITALS: Ht 167.6 cm; Wt 49.9 kg
[2019-06-18 20:26] VITALS: Ht 167.6 cm; Wt 49.9 kg
[2019-06-18 21:30] VITALS: BP 170/100
== END 2019-06-18 21:30 | disposition home or self-care (01) ==
LOC: D.ER 20:19
DX: Z00.00 Encounter for general adult medical examination without abnormal findings (principal); F41.9 Anxiety disorder, unspecified; Z76.5 Malingerer [conscious simulation]; E11.9 Type 2 diabetes mellitus without complications; I10 Essential (primary) hypertension; Z72.0 Tobacco use; Z79.84 Long term (current) use of oral hypoglycemic drugs

== ENCOUNTER 2019-06-20 13:35 | Emergency (ER) | payer OTHER ==
[~2019-06-20] VITALS: Ht 167.6 cm; Wt 49.9 kg
[2019-06-20 13:41] VITALS: BP 135/87; Ht 167.6 cm; Wt 49.9 kg
[2019-06-21] MEDS ORDERED: NORVASC10 MG PO (20:07)
== END 2019-06-20 14:34 | disposition home or self-care (01) ==
LOC: D.ER 13:35
DX: F20.9 Schizophrenia, unspecified (principal); E11.9 Type 2 diabetes mellitus without complications; Z79.84 Long term (current) use of oral hypoglycemic drugs; I10 Essential (primary) hypertension

== ENCOUNTER 2019-06-21 01:12 | Emergency (ER) | payer OTHER ==
[~2019-06-21] VITALS: Ht 167.6 cm; Wt 75.0 kg
[2019-06-21 01:22] VITALS: Ht 167.6 cm; Wt 75.0 kg
[2019-06-21 01:59] VITALS: BP 177/115
[2019-06-21] MEDS ORDERED: NORVASC10 MG PO (20:07)
== END 2019-06-21 01:59 | disposition home or self-care (01) ==
LOC: D.ER 01:12
DX: E11.9 Type 2 diabetes mellitus without complications (principal); I10 Essential (primary) hypertension; Z79.84 Long term (current) use of oral hypoglycemic drugs

== ENCOUNTER 2019-06-21 19:37 | Emergency (ER) | payer OTHER ==
[~2019-06-21] VITALS: Ht 167.6 cm; Wt 72.6 kg
[2019-06-21 20:00] VITALS: Ht 167.6 cm; Wt 72.6 kg
[2019-06-21] MEDS ORDERED: NORVASC10 MG PO (20:07)
[2019-06-21 22:00] VITALS: BP 145/87
== END 2019-06-21 22:20 | disposition home or self-care (01) ==
LOC: D.ER 19:37
DX: F41.9 Anxiety disorder, unspecified (principal); Z76.5 Malingerer [conscious simulation]; E11.9 Type 2 diabetes mellitus without complications; I10 Essential (primary) hypertension

== ENCOUNTER 2019-06-23 03:29 | Emergency (ER) | payer OTHER ==
[~2019-06-23] VITALS: Ht 167.6 cm; Wt 81.8 kg
[2019-06-23 03:34] VITALS: Ht 167.6 cm; Wt 81.8 kg
[2019-06-23 06:19] VITALS: BP 158/84
[2019-06-24] MEDS ORDERED: GLUCOTROL XL 5 M5 MG PO (12:52)
== END 2019-06-23 06:21 | disposition home or self-care (01) ==
LOC: D.ER 03:29
DX: F20.9 Schizophrenia, unspecified (principal); I10 Essential (primary) hypertension; E11.9 Type 2 diabetes mellitus without complications; Z79.84 Long term (current) use of oral hypoglycemic drugs

== ENCOUNTER 2019-06-23 11:56 | Emergency (ER) | payer OTHER ==
[~2019-06-23] VITALS: Ht 167.6 cm; Wt 54.5 kg
[2019-06-23 11:57] VITALS: Ht 167.6 cm; Wt 54.5 kg
[2019-06-23 12:08] VITALS: BP 135/48
[2019-06-24] MEDS ORDERED: GLUCOTROL XL 5 M5 MG PO (12:52)
== END 2019-06-23 12:41 | disposition home or self-care (01) ==
LOC: D.ER 11:56
DX: Z00.00 Encounter for general adult medical examination without abnormal findings (principal); E11.9 Type 2 diabetes mellitus without complications; I10 Essential (primary) hypertension; Z72.0 Tobacco use; Z79.84 Long term (current) use of oral hypoglycemic drugs

== ENCOUNTER 2019-06-23 15:43 | Emergency (ER) | payer OTHER ==
[~2019-06-23] VITALS: Ht 167.6 cm; Wt 54.5 kg
[2019-06-23 15:48] VITALS: BP 178/102; Ht 167.6 cm; Wt 54.5 kg
[2019-06-24] MEDS ORDERED: GLUCOTROL XL 5 M5 MG PO (12:52)
== END 2019-06-23 18:43 | disposition home or self-care (01) ==
LOC: D.ER 15:43
DX: Z59.0 Homelessness (principal); Z76.5 Malingerer [conscious simulation]; I10 Essential (primary) hypertension; E11.9 Type 2 diabetes mellitus without complications; Z72.0 Tobacco use; Z79.84 Long term (current) use of oral hypoglycemic drugs

== ENCOUNTER 2019-06-24 12:04 | Emergency (ER) | payer OTHER ==
[~2019-06-24] VITALS: Ht 167.6 cm; Wt 61.4 kg
[2019-06-24 12:18] VITALS: Ht 167.6 cm; Wt 61.4 kg
[2019-06-24] MEDS ORDERED: GLUCOTROL XL 5 M5 MG PO (12:52)
[2019-06-24 12:53] VITALS: BP 148/88
== END 2019-06-24 13:00 | disposition home or self-care (01) ==
LOC: D.ER 12:04
DX: Z76.0 Encounter for issue of repeat prescription (principal); Z76.5 Malingerer [conscious simulation]; E11.9 Type 2 diabetes mellitus without complications; Z79.84 Long term (current) use of oral hypoglycemic drugs; I10 Essential (primary) hypertension

== ENCOUNTER 2019-06-24 20:31 | Emergency (ER) | payer OTHER ==
[~2019-06-24] VITALS: Ht 167.6 cm; Wt 63.6 kg
[~2019-06-24 20:31] MED LIST changes: +GLUCOTROL XL 5 M5 MG PO
[2019-06-24 20:51] VITALS: Ht 167.6 cm; Wt 63.6 kg
[2019-06-24 21:30] VITALS: BP 169/89
== END 2019-06-24 21:30 | disposition home or self-care (01) ==
LOC: D.ER 20:31
DX: Z76.5 Malingerer [conscious simulation] (principal); I10 Essential (primary) hypertension

== ENCOUNTER 2019-06-25 10:11 | Emergency (ER) | payer OTHER ==
[~2019-06-25] VITALS: Ht 167.6 cm; Wt 70.5 kg
[2019-06-25 10:18] VITALS: Ht 167.6 cm; Wt 70.5 kg
[2019-06-25 11:16] VITALS: BP 132/80
== END 2019-06-25 11:18 | disposition home or self-care (01) ==
LOC: D.ER 10:11
DX: E11.9 Type 2 diabetes mellitus without complications (principal); Z76.5 Malingerer [conscious simulation]; Z91.14 Patient's other noncompliance with medication regimen; Z59.0 Homelessness; I10 Essential (primary) hypertension

== ENCOUNTER 2019-06-25 23:45 | Emergency (ER) | payer OTHER ==
[~2019-06-25] VITALS: Ht 167.6 cm; Wt 54.4 kg
[2019-06-25 23:50] VITALS: Ht 167.6 cm; Wt 54.4 kg
[2019-06-26 00:54] VITALS: BP 169/82
== END 2019-06-26 00:54 | disposition home or self-care (01) ==
LOC: D.ER 23:45
DX: Z76.5 Malingerer [conscious simulation] (principal); E11.9 Type 2 diabetes mellitus without complications; I10 Essential (primary) hypertension; Z79.84 Long term (current) use of oral hypoglycemic drugs

== ENCOUNTER 2019-06-26 23:06 | Emergency (ER) | payer OTHER ==
[~2019-06-26] VITALS: Ht 167.6 cm; Wt 59.1 kg
[2019-06-26 23:13] VITALS: BP 157/70; Ht 167.6 cm; Wt 59.1 kg
== END 2019-06-26 23:26 | disposition home or self-care (01) ==
LOC: D.ER 23:06
DX: Z76.5 Malingerer [conscious simulation] (principal); T73.0XXA Starvation, initial encounter; I10 Essential (primary) hypertension

== ENCOUNTER 2019-06-27 19:26 | Emergency (ER) | payer OTHER ==
[~2019-06-27] VITALS: Ht 167.6 cm; Wt 59.1 kg
[2019-06-27 19:44] VITALS: Ht 167.6 cm; Wt 59.1 kg
[2019-06-27 21:34] VITALS: BP 165/89
[2019-06-28] MEDS ORDERED: METOPROLOL TART50 MG PO (11:16)
[2019-06-28] MEDS ORDERED: GLUCOTROL XL 5 M5 MG PO (11:16)
== END 2019-06-27 19:45 | disposition home or self-care (01) ==
LOC: D.ER 19:26
DX: E11.9 Type 2 diabetes mellitus without complications (principal); Z79.84 Long term (current) use of oral hypoglycemic drugs; Z76.5 Malingerer [conscious simulation]; Z91.14 Patient's other noncompliance with medication regimen; I10 Essential (primary) hypertension

== ENCOUNTER 2019-06-28 10:39 | Emergency (ER) | payer OTHER ==
[~2019-06-28] VITALS: Ht 167.6 cm; Wt 50.0 kg
[2019-06-28 10:46] VITALS: Ht 167.6 cm; Wt 50.0 kg
[2019-06-28] MEDS ORDERED: GLUCOTROL XL 5 M5 MG PO (11:16)
[2019-06-28] MEDS ORDERED: METOPROLOL TART50 MG PO (11:16)
[2019-06-28 11:39] VITALS: BP 151/85
== END 2019-06-28 11:35 | disposition home or self-care (01) ==
LOC: D.ER 10:39
DX: Z76.0 Encounter for issue of repeat prescription (principal); E11.9 Type 2 diabetes mellitus without complications; I10 Essential (primary) hypertension; Z72.0 Tobacco use; Z79.84 Long term (current) use of oral hypoglycemic drugs

== ENCOUNTER 2019-06-28 16:32 | Emergency (ER) | payer OTHER ==
[~2019-06-28] VITALS: Ht 167.6 cm; Wt 50.0 kg
[2019-06-28 16:43] VITALS: BP 164/95; Ht 167.6 cm; Wt 50.0 kg
== END 2019-06-28 17:00 | disposition home or self-care (01) ==
LOC: D.ER 16:32
DX: I10 Essential (primary) hypertension (principal); Z59.0 Homelessness; E11.9 Type 2 diabetes mellitus without complications; Z72.0 Tobacco use; Z79.84 Long term (current) use of oral hypoglycemic drugs

== ENCOUNTER 2019-06-28 21:01 | Emergency (ER) | payer OTHER ==
[~2019-06-28] VITALS: Ht 167.6 cm; Wt 59.1 kg
[2019-06-28 21:31] VITALS: BP 145/90; Ht 167.6 cm; Wt 59.1 kg
== END 2019-06-28 21:39 | disposition home or self-care (01) ==
LOC: D.ER 21:01
DX: Z76.5 Malingerer [conscious simulation] (principal); Z59.0 Homelessness; T73.0XXA Starvation, initial encounter; X58.XXXA Exposure to other specified factors, initial encounter; I10 Essential (primary) hypertension; E11.9 Type 2 diabetes mellitus without complications

== ENCOUNTER 2019-06-29 16:49 | Emergency (ER) | payer OTHER ==
[2019-06-29 16:55] VITALS: Ht 167.6 cm
[2019-06-29 17:27] VITALS: BP 134/84
== END 2019-06-29 17:27 | disposition home or self-care (01) ==
LOC: D.ER 16:49
DX: E16.2 Hypoglycemia, unspecified (principal); Z59.0 Homelessness; T73.0XXA Starvation, initial encounter; X58.XXXA Exposure to other specified factors, initial encounter; Z76.5 Malingerer [conscious simulation]; I10 Essential (primary) hypertension; E11.9 Type 2 diabetes mellitus without complications

== ENCOUNTER 2019-06-30 12:25 | Emergency (ER) | payer OTHER ==
[~2019-06-30] VITALS: Ht 167.6 cm; Wt 65.9 kg
[2019-06-30 12:28] VITALS: BP 168/78; Ht 167.6 cm; Wt 65.9 kg
== END 2019-06-30 13:25 | disposition home or self-care (01) ==
LOC: D.ER 12:25
DX: E11.649 Type 2 diabetes mellitus with hypoglycemia without coma (principal); Z76.5 Malingerer [conscious simulation]; I10 Essential (primary) hypertension; Z72.0 Tobacco use

== ENCOUNTER 2019-07-21 19:37 | Emergency (ER) | payer OTHER ==
[~2019-07-21] VITALS: Ht 167.6 cm; Wt 59.1 kg
[2019-07-21 20:09] VITALS: Ht 167.6 cm; Wt 59.1 kg
[2019-07-21] MEDS ORDERED: GLUCOTROL XL 5 M5 MG PO (20:36)
[2019-07-21] MEDS ORDERED: METOPROLOL TART50 MG PO (20:36)
[2019-07-21 21:28] VITALS: BP 158/89
== END 2019-07-21 21:41 | disposition home or self-care (01) ==
LOC: D.ER 19:37
DX: Z76.0 Encounter for issue of repeat prescription (principal); I10 Essential (primary) hypertension; E11.9 Type 2 diabetes mellitus without complications; Z72.0 Tobacco use; Z79.84 Long term (current) use of oral hypoglycemic drugs

== ENCOUNTER 2019-07-22 22:00 | Emergency (ER) | payer OTHER ==
[~2019-07-22] VITALS: Ht 167.6 cm; Wt 50.0 kg
[2019-07-22 22:03] VITALS: Ht 167.6 cm; Wt 50.0 kg
[2019-07-22 22:26] LABS: BILIRUBIN NEGATIVE (NEGATIVE); GLUCOSE NEGATIVE (NEGATIVE); KETONE NEGATIVE (NEGATIVE); NITRITE NEGATIVE (NEGATIVE); UROBILINOGEN NORMAL (NORMAL)
[2019-07-22 22:55] VITALS: BP 160/90
== END 2019-07-22 22:55 | disposition home or self-care (01) ==
LOC: D.ER 22:00
PROVIDERS: Family Medicine
DX: R10.30 Lower abdominal pain, unspecified (principal); E11.9 Type 2 diabetes mellitus without complications; Z79.84 Long term (current) use of oral hypoglycemic drugs; I10 Essential (primary) hypertension

== ENCOUNTER 2019-07-23 07:02 | Emergency (ER) | payer OTHER ==
[~2019-07-23] VITALS: Ht 167.6 cm; Wt 50.0 kg
[2019-07-23 07:06] VITALS: Ht 167.6 cm; Wt 50.0 kg
[2019-07-23 07:11] VITALS: BP 122/70
== END 2019-07-23 07:26 | disposition home or self-care (01) ==
LOC: D.ER 07:02
DX: E11.9 Type 2 diabetes mellitus without complications (principal); R45.4 Irritability and anger; Z59.0 Homelessness; I10 Essential (primary) hypertension; Z72.0 Tobacco use; Z79.84 Long term (current) use of oral hypoglycemic drugs

== ENCOUNTER 2019-07-23 16:52 | Emergency (ER) | payer OTHER ==
[~2019-07-23] VITALS: Ht 167.6 cm; Wt 68.2 kg
[2019-07-23 17:04] VITALS: Ht 167.6 cm; Wt 68.2 kg
[2019-07-23 18:03] VITALS: BP 115/68
== END 2019-07-23 18:03 | disposition home or self-care (01) ==
LOC: D.ER 16:52
DX: Z76.5 Malingerer [conscious simulation] (principal); Z59.0 Homelessness; E11.9 Type 2 diabetes mellitus without complications; I10 Essential (primary) hypertension; Z79.84 Long term (current) use of oral hypoglycemic drugs

== ENCOUNTER 2019-07-23 21:05 | Emergency (ER) | payer OTHER ==
[~2019-07-23] VITALS: Ht 167.6 cm; Wt 68.2 kg
[2019-07-23 21:12] VITALS: BP 147/97; Ht 167.6 cm; Wt 68.2 kg
== END 2019-07-23 21:32 | disposition home or self-care (01) ==
LOC: D.ER 21:05
DX: E11.9 Type 2 diabetes mellitus without complications (principal); Z79.84 Long term (current) use of oral hypoglycemic drugs; I10 Essential (primary) hypertension

== ENCOUNTER 2019-07-24 01:43 | Emergency (ER) | payer OTHER ==
[~2019-07-24] VITALS: Ht 167.6 cm; Wt 70.5 kg
[2019-07-24 01:44] VITALS: Ht 167.6 cm; Wt 70.5 kg
[2019-07-24 02:49] VITALS: BP 134/89
== END 2019-07-24 02:50 | disposition home or self-care (01) ==
LOC: D.ER 01:43
DX: F20.9 Schizophrenia, unspecified (principal); R10.9 Unspecified abdominal pain; E11.9 Type 2 diabetes mellitus without complications; I10 Essential (primary) hypertension; Z79.84 Long term (current) use of oral hypoglycemic drugs

== ENCOUNTER 2019-07-24 05:05 | Emergency (ER) | payer OTHER ==
[~2019-07-24] VITALS: Ht 167.6 cm; Wt 59.1 kg
[2019-07-24 05:14] VITALS: Ht 167.6 cm; Wt 59.1 kg
[2019-07-24 05:24] VITALS: BP 179/89
== END 2019-07-24 05:24 | disposition home or self-care (01) ==
LOC: D.ER 05:05
DX: F20.9 Schizophrenia, unspecified (principal); E11.9 Type 2 diabetes mellitus without complications; I10 Essential (primary) hypertension; Z72.0 Tobacco use; Z79.84 Long term (current) use of oral hypoglycemic drugs

== ENCOUNTER 2019-07-24 08:24 | Emergency (ER) | payer OTHER ==
[~2019-07-24] VITALS: Ht 167.6 cm; Wt 50.0 kg
[2019-07-24 08:31] VITALS: BP 186/145; Ht 167.6 cm; Wt 50.0 kg
== END 2019-07-24 09:00 | disposition home or self-care (01) ==
LOC: D.ER 08:24
DX: Z53.21 Procedure and treatment not carried out due to patient leaving prior to being seen by health care provider (principal); E11.9 Type 2 diabetes mellitus without complications; I10 Essential (primary) hypertension; Z79.84 Long term (current) use of oral hypoglycemic drugs

== ENCOUNTER 2019-07-24 23:04 | Emergency (ER) | payer OTHER ==
[~2019-07-24] VITALS: Ht 167.6 cm; Wt 50.0 kg
[2019-07-24 23:11] VITALS: BP 145/70; Ht 167.6 cm; Wt 50.0 kg
== END 2019-07-24 23:30 | disposition left against medical advice (07) ==
LOC: D.ER 23:04
DX: Z53.21 Procedure and treatment not carried out due to patient leaving prior to being seen by health care provider (principal); I10 Essential (primary) hypertension; E11.9 Type 2 diabetes mellitus without complications; Z72.0 Tobacco use; Z79.84 Long term (current) use of oral hypoglycemic drugs; R05 Cough; R50.9 Fever, unspecified; J02.9 Acute pharyngitis, unspecified; R68.89 Other general symptoms and signs

== ENCOUNTER 2019-07-25 01:48 | Emergency (ER) | payer OTHER ==
[~2019-07-25] VITALS: Ht 167.6 cm; Wt 50.0 kg
[2019-07-25 02:08] VITALS: BP 167/103; Ht 167.6 cm; Wt 50.0 kg
== END 2019-07-25 02:24 | disposition left against medical advice (07) ==
LOC: D.ER 01:48
DX: E16.2 Hypoglycemia, unspecified (principal); Z53.29 Procedure and treatment not carried out because of patient's decision for other reasons; R05 Cough; R52 Pain, unspecified

== ENCOUNTER 2019-07-25 08:38 | Emergency (ER) | payer OTHER ==
[~2019-07-25] VITALS: Ht 167.6 cm; Wt 63.6 kg
[2019-07-25 08:51] VITALS: BP 189/95; Ht 167.6 cm; Wt 63.6 kg
== END 2019-07-25 09:07 | disposition home or self-care (01) ==
LOC: D.ER 08:38
DX: Z76.5 Malingerer [conscious simulation] (principal); Z53.29 Procedure and treatment not carried out because of patient's decision for other reasons

== ENCOUNTER 2019-07-26 21:15 | Emergency (ER) | payer OTHER ==
[~2019-07-26] VITALS: Ht 167.6 cm; Wt 68.2 kg
[2019-07-26 21:34] VITALS: BP 197/100; Ht 167.6 cm; Wt 68.2 kg
== END 2019-07-26 23:10 | disposition home or self-care (01) ==
LOC: D.ER 21:15
DX: R44.3 Hallucinations, unspecified (principal); I10 Essential (primary) hypertension; Z72.0 Tobacco use

== ENCOUNTER 2019-07-27 20:20 | Emergency (ER) | payer OTHER ==
[~2019-07-27] VITALS: Ht 167.6 cm; Wt 50.0 kg
[2019-07-27 20:43] VITALS: BP 150/100; Ht 167.6 cm; Wt 50.0 kg
== END 2019-07-27 20:54 | disposition home or self-care (01) ==
LOC: D.ER 20:20
DX: Z76.5 Malingerer [conscious simulation] (principal); Z76.0 Encounter for issue of repeat prescription; Z53.29 Procedure and treatment not carried out because of patient's decision for other reasons; E11.9 Type 2 diabetes mellitus without complications; I10 Essential (primary) hypertension; Z72.0 Tobacco use

== ENCOUNTER 2019-07-30 19:14 | Emergency (ER) | payer OTHER ==
[~2019-07-30] VITALS: Ht 167.6 cm; Wt 56.8 kg
[2019-07-30 19:30] VITALS: Ht 167.6 cm; Wt 56.8 kg
[2019-07-30 19:36] LABS: BILIRUBIN NEGATIVE (NEGATIVE); GLUCOSE NEGATIVE (NEGATIVE); KETONE NEGATIVE (NEGATIVE); NITRITE NEGATIVE (NEGATIVE); SPECIFIC GRAVITY 1.025 (1.005-1.020); UROBILINOGEN NORMAL (NORMAL)
[2019-07-30 19:45] LABS: UDS - AMPHET NEGATIVE QUAL (NEGATIVE); UDS - BARB NEGATIVE QUAL (NEGATIVE); UDS - BENZO NEGATIVE QUAL (NEGATIVE); UDS - COCAINE NEGATIVE QUAL (NEGATIVE); UDS - OPIATE NEGATIVE QUAL (NEGATIVE); UDS - PCP NEGATIVE QUAL (NEGATIVE); UDS - THC NEGATIVE QUAL (NEGATIVE)
[2019-07-30 19:52] LABS: BASOPHILS 0.1 % (0-2); EOSINOPHILS 1.1 % (0-7); HEMATOCRIT 35.5 % (36.0-48.0); HEMOGLOBIN 11.7 g/dL (12-16); IMMATURE GRANULOCYTES 0.2 % (0-5); LYMPHOCYTES 40.1 % (15-50); MCH 26.7 pg (26.0-34.0); MCV 80.9 fL (80.0-100.0); MEAN PLATELET VOLUME 9.4 fL (7.4-10.4); MONOCYTES 10.3 % (2-11); NEUTROPHILS 48.2 % (40-80); RBC 4.39 10x6/uL (4.00-5.40)
[2019-07-30 19:53] LABS: PLATELET COUNT 232 10x3/uL (130-400)
[2019-07-30 20:04] LABS: ANION GAP 9.7 mmol/L (8-16); CALCIUM 9.1 mg/dL (8.5-10.1); CARBON DIOXIDE 30.9 mmol/L (21.0-32.0); CREATININE - SERUM 1.2 mg/dL (0.6-1.3); POTASSIUM - SERUM 3.6 mmol/L (3.5-5.1)
[2019-07-30 20:11] LABS: ALBUMIN 3.7 g/dL (3.4-5.0); BILIRUBIN - TOTAL 0.24 mg/dL (0.2-1.3); PROTEIN - SERUM 7.2 g/dL (6.4-8.2)
[2019-07-31 00:14] VITALS: BP 178/88
== END 2019-07-31 00:14 ==
LOC: D.ER 19:14
PROVIDERS: Family Medicine
DX: F20.9 Schizophrenia, unspecified (principal); R44.1 Visual hallucinations; R44.0 Auditory hallucinations; I10 Essential (primary) hypertension; E11.9 Type 2 diabetes mellitus without complications; Z59.0 Homelessness; Z72.0 Tobacco use; Z79.84 Long term (current) use of oral hypoglycemic drugs

== ENCOUNTER 2019-08-01 22:01 | Emergency (ER) | payer OTHER ==
[~2019-08-01] VITALS: Ht 167.6 cm; Wt 65.9 kg
[2019-08-01 22:09] VITALS: BP 143/80; Ht 167.6 cm; Wt 65.9 kg
[2019-08-02] MEDS ORDERED: PROZAC20 MG PO (07:39)
== END 2019-08-01 22:43 | disposition home or self-care (01) ==
LOC: D.ER 22:01
DX: Z76.5 Malingerer [conscious simulation] (principal); Z00.00 Encounter for general adult medical examination without abnormal findings; E11.9 Type 2 diabetes mellitus without complications; I10 Essential (primary) hypertension

== ENCOUNTER 2019-08-02 07:02 | Emergency (ER) | payer OTHER ==
[~2019-08-02] VITALS: Ht 167.6 cm; Wt 59.1 kg
[2019-08-02 07:18] VITALS: Ht 167.6 cm; Wt 59.1 kg
[2019-08-02] MEDS ORDERED: PROZAC20 MG PO (07:39)
[2019-08-02 08:20] VITALS: BP 174/86
== END 2019-08-02 08:21 | disposition home or self-care (01) ==
LOC: D.ER 07:02
DX: F32.9 Major depressive disorder, single episode, unspecified (principal); E11.9 Type 2 diabetes mellitus without complications; I10 Essential (primary) hypertension; Z72.0 Tobacco use; Z79.84 Long term (current) use of oral hypoglycemic drugs

== ENCOUNTER 2019-08-04 01:39 | Emergency (ER) | payer OTHER ==
[2019-08-02 07:18] VITALS: BMI 21.0
[2019-08-05] MEDS ORDERED: METFORMIN HCL500 M1 PO (20:47)
[2019-08-05] MEDS ORDERED: TOPROL XL50 MG PO (20:47)
== END 2019-08-04 02:15 | disposition left against medical advice (07) ==
LOC: D.ER 01:39
DX: E11.9 Type 2 diabetes mellitus without complications (principal)

== ENCOUNTER 2019-08-04 07:02 | Emergency (ER) | payer OTHER ==
[~2019-08-04] VITALS: Ht 167.6 cm; Wt 56.8 kg
[2019-08-04 07:06] VITALS: Ht 167.6 cm; Wt 56.8 kg
[2019-08-04 07:13] VITALS: BP 160/90
[2019-08-05] MEDS ORDERED: TOPROL XL50 MG PO (20:47)
[2019-08-05] MEDS ORDERED: METFORMIN HCL500 M1 PO (20:47)
== END 2019-08-04 07:13 | disposition home or self-care (01) ==
LOC: D.ER 07:02
DX: Z76.5 Malingerer [conscious simulation] (principal); E11.9 Type 2 diabetes mellitus without complications; I10 Essential (primary) hypertension; Z79.84 Long term (current) use of oral hypoglycemic drugs

== ENCOUNTER 2019-08-05 20:00 | Emergency (ER) | payer OTHER ==
[~2019-08-05] VITALS: Ht 167.6 cm; Wt 50.0 kg
[2019-08-05 20:29] VITALS: BP 178/98; Ht 167.6 cm; Wt 50.0 kg
[2019-08-05] MEDS ORDERED: METFORMIN HCL500 M1 PO (20:47)
[2019-08-05] MEDS ORDERED: TOPROL XL50 MG PO (20:47)
== END 2019-08-05 20:53 | disposition home or self-care (01) ==
LOC: D.ER 20:00
DX: Z76.0 Encounter for issue of repeat prescription (principal); E11.9 Type 2 diabetes mellitus without complications; Z79.84 Long term (current) use of oral hypoglycemic drugs; I10 Essential (primary) hypertension

== ENCOUNTER 2019-08-08 00:25 | Emergency (ER) | payer OTHER ==
[~2019-08-08] VITALS: Ht 167.6 cm; Wt 50.0 kg
[~2019-08-08 00:25] MED LIST changes: +METFORMIN HCL500 M1 PO; +TOPROL XL50 MG PO
[2019-08-08 00:44] VITALS: BP 162/95; Ht 167.6 cm; Wt 50.0 kg
== END 2019-08-08 01:10 | disposition home or self-care (01) ==
LOC: D.ER 00:25
DX: Z76.5 Malingerer [conscious simulation] (principal); F20.9 Schizophrenia, unspecified; E11.9 Type 2 diabetes mellitus without complications; Z79.84 Long term (current) use of oral hypoglycemic drugs; I10 Essential (primary) hypertension; Z72.0 Tobacco use

== ENCOUNTER 2019-08-09 08:57 | Emergency (ER) | payer OTHER ==
[~2019-08-09] VITALS: Ht 167.6 cm; Wt 56.8 kg
[2019-08-09 09:02] VITALS: BP 149/111; Ht 167.6 cm; Wt 56.8 kg
== END 2019-08-09 10:50 | disposition home or self-care (01) ==
LOC: D.ER 08:57
DX: Z76.5 Malingerer [conscious simulation] (principal); Z59.0 Homelessness; E11.9 Type 2 diabetes mellitus without complications; I10 Essential (primary) hypertension; F41.9 Anxiety disorder, unspecified; Z72.0 Tobacco use; Z79.84 Long term (current) use of oral hypoglycemic drugs

== ENCOUNTER 2019-08-09 12:30 | Emergency (ER) | payer OTHER ==
[~2019-08-09] VITALS: Ht 167.6 cm; Wt 45.5 kg
[2019-08-09 12:41] VITALS: BP 128/86; Ht 167.6 cm; Wt 45.5 kg
== END 2019-08-09 15:02 ==
LOC: D.ER 12:30
DX: R46.89 Other symptoms and signs involving appearance and behavior (principal); Z76.5 Malingerer [conscious simulation]; I10 Essential (primary) hypertension; Z72.0 Tobacco use

== ENCOUNTER 2019-08-15 00:48 | Emergency (ER) | payer OTHER ==
[~2019-08-15] VITALS: Ht 167.6 cm; Wt 59.1 kg
[2019-08-15 00:55] VITALS: BP 150/91; Ht 167.6 cm; Wt 59.1 kg
[2019-08-15] MEDS ORDERED: TOPROL XL50 MG PO (01:02)
[2019-08-15] MEDS ORDERED: METFORMIN HCL500 M1 PO (01:02)
== END 2019-08-15 01:12 | disposition home or self-care (01) ==
LOC: D.ER 00:48
DX: Z76.0 Encounter for issue of repeat prescription (principal); Z59.0 Homelessness; Z76.5 Malingerer [conscious simulation]; E11.9 Type 2 diabetes mellitus without complications; I10 Essential (primary) hypertension; Z72.0 Tobacco use; Z79.84 Long term (current) use of oral hypoglycemic drugs

== ENCOUNTER 2019-08-15 04:13 | Emergency (ER) | payer OTHER ==
[~2019-08-15] VITALS: Ht 167.6 cm; Wt 59.1 kg
[2019-08-15 04:25] VITALS: BP 159/99; Ht 167.6 cm; Wt 59.1 kg
== END 2019-08-15 04:39 | disposition home or self-care (01) ==
LOC: D.ER 04:13
DX: E11.9 Type 2 diabetes mellitus without complications (principal); F20.9 Schizophrenia, unspecified; I10 Essential (primary) hypertension; Z72.0 Tobacco use; Z79.84 Long term (current) use of oral hypoglycemic drugs

== ENCOUNTER 2019-08-15 22:55 | Emergency (ER) | payer OTHER ==
[~2019-08-15] VITALS: Ht 167.6 cm; Wt 59.1 kg
[2019-08-15 23:02] VITALS: Ht 167.6 cm; Wt 59.1 kg
[2019-08-15 23:25] LABS: BILIRUBIN NEGATIVE (NEGATIVE); GLUCOSE NEGATIVE (NEGATIVE); KETONE NEGATIVE (NEGATIVE); NITRITE NEGATIVE (NEGATIVE); UROBILINOGEN NORMAL (NORMAL)
[2019-08-15 23:56] LABS: ANION GAP 8.1 mmol/L (8-16); CALCIUM 9.2 mg/dL (8.5-10.1); CARBON DIOXIDE 32.7 mmol/L (21.0-32.0); POTASSIUM - SERUM 3.8 mmol/L (3.5-5.1)
[2019-08-16 00:07] LABS: BASOPHILS 0.1 % (0-2); EOSINOPHILS 0.7 % (0-7); HEMATOCRIT 36.8 % (36.0-48.0); IMMATURE GRANULOCYTES 0.1 % (0-5); MCH 27.3 pg (26.0-34.0); MCHC 32.6 g/dL (31.0-37.0); MCV 83.6 fL (80.0-100.0); MEAN PLATELET VOLUME 9.9 fL (7.4-10.4); MONOCYTES 7.8 % (2-11); NEUTROPHILS 53.3 % (40-80); PLATELET COUNT 212 10x3/uL (130-400); RDW 15.1 % (11.5-14.5); WBC 7.7 10x3/uL (4.8-10.8)
[2019-08-16 00:14] LABS: MAGNESIUM - SERUM 2.2 mg/dL (1.8-2.4)
[2019-08-16 00:15] LABS: ALBUMIN 3.9 g/dL (3.4-5.0); BILIRUBIN - TOTAL 0.33 mg/dL (0.2-1.3); PROTEIN - SERUM 7.5 g/dL (6.4-8.2); THYROID STIMULATING HORMONE 1.3 uIU/mL (0.36-3.74)
[2019-08-16 02:55] VITALS: BP 139/81
== END 2019-08-16 02:55 | disposition home or self-care (01) ==
LOC: D.ER 22:55
PROVIDERS: Family Medicine
DX: R53.81 Other malaise (principal); F20.89 Other schizophrenia; I10 Essential (primary) hypertension

== ENCOUNTER 2019-08-16 06:05 | Emergency (ER) | payer OTHER ==
[~2019-08-16] VITALS: Ht 167.6 cm; Wt 59.1 kg
[2019-08-16 06:10] VITALS: BP 141/85; Ht 167.6 cm; Wt 59.1 kg
== END 2019-08-16 06:52 | disposition home or self-care (01) ==
LOC: D.ER 06:05
DX: R53.1 Weakness (principal); I10 Essential (primary) hypertension; Z59.0 Homelessness

== ENCOUNTER 2019-08-16 18:12 | Emergency (ER) | payer OTHER ==
[~2019-08-16] VITALS: Ht 167.6 cm; Wt 50.0 kg
[2019-08-16 18:17] VITALS: Ht 167.6 cm; Wt 50.0 kg
[2019-08-16 19:10] VITALS: BP 127/91
== END 2019-08-16 19:10 | disposition home or self-care (01) ==
LOC: D.ER 18:12
DX: E11.9 Type 2 diabetes mellitus without complications (principal); I10 Essential (primary) hypertension; Z72.0 Tobacco use

== ENCOUNTER 2019-08-16 20:34 | Emergency (ER) | payer OTHER ==
[~2019-08-16] VITALS: Ht 167.6 cm; Wt 59.1 kg
[2019-08-16 20:47] VITALS: BP 151/89; Ht 167.6 cm; Wt 59.1 kg
== END 2019-08-16 21:25 | disposition home or self-care (01) ==
LOC: D.ER 20:34
DX: Z00.00 Encounter for general adult medical examination without abnormal findings (principal); I10 Essential (primary) hypertension; K21.9 Gastro-esophageal reflux disease without esophagitis; Z72.0 Tobacco use

== ENCOUNTER 2019-08-18 18:26 | Emergency (ER) | payer OTHER ==
[~2019-08-18] VITALS: Ht 167.6 cm; Wt 61.4 kg
[2019-08-18 18:51] VITALS: Ht 167.6 cm; Wt 61.4 kg
[2019-08-18] MEDS ORDERED: TOPROL XL50 MG PO (18:58)
[2019-08-18] MEDS ORDERED: METOPROLOL TART50 MG PO (18:58)
[2019-08-18] MEDS ORDERED: METFORMIN HCL500 M1 PO (18:58)
[2019-08-18 19:06] VITALS: BP 156/86
== END 2019-08-18 19:07 | disposition home or self-care (01) ==
LOC: D.ER 18:26
DX: Z76.0 Encounter for issue of repeat prescription (principal); I10 Essential (primary) hypertension; K21.9 Gastro-esophageal reflux disease without esophagitis; Z72.0 Tobacco use; E11.9 Type 2 diabetes mellitus without complications

== ENCOUNTER 2019-08-18 22:24 | Emergency (ER) | payer OTHER ==
[~2019-08-18] VITALS: Ht 167.6 cm; Wt 75.0 kg
[2019-08-18 22:31] VITALS: Ht 167.6 cm; Wt 75.0 kg
== END 2019-08-18 22:42 | disposition home or self-care (01) ==
LOC: D.ER 22:24
DX: F20.9 Schizophrenia, unspecified (principal); I10 Essential (primary) hypertension; K21.9 Gastro-esophageal reflux disease without esophagitis

== ENCOUNTER 2019-08-20 04:30 | Emergency (ER) | payer OTHER ==
[~2019-08-20] VITALS: Ht 167.6 cm; Wt 56.8 kg
[2019-08-20 04:35] VITALS: BP 167/100; Ht 167.6 cm; Wt 56.8 kg
== END 2019-08-20 04:52 | disposition home or self-care (01) ==
LOC: D.ER 04:30
DX: E46 Unspecified protein-calorie malnutrition (principal); F20.9 Schizophrenia, unspecified; Z59.0 Homelessness; E11.9 Type 2 diabetes mellitus without complications; Z79.84 Long term (current) use of oral hypoglycemic drugs; I10 Essential (primary) hypertension; K21.9 Gastro-esophageal reflux disease without esophagitis

== ENCOUNTER 2019-09-04 21:40 | Emergency (ER) | payer OTHER ==
[~2019-09-04] VITALS: Ht 167.6 cm; Wt 65.9 kg
[2019-09-04 22:10] VITALS: Ht 167.6 cm; Wt 65.9 kg
[2019-09-04] MEDS ORDERED: METFORMIN HCL500 M1 PO (22:25)
[2019-09-04 23:06] VITALS: BP 159/67
[2019-09-05] MEDS ORDERED: IBUPROFEN800 MG PO (00:28)
[2019-09-05] MEDS ORDERED: ACETAMINOPHEN500 M1 PO (21:22)
[2019-09-05] MEDS ORDERED: CENTRUM SILVER1 EAC3 PO (21:22)
== END 2019-09-04 23:06 | disposition home or self-care (01) ==
LOC: D.ER 21:40
DX: Z76.5 Malingerer [conscious simulation] (principal); Z59.0 Homelessness; M79.89 Other specified soft tissue disorders; E11.9 Type 2 diabetes mellitus without complications; I10 Essential (primary) hypertension; K21.9 Gastro-esophageal reflux disease without esophagitis; Z72.0 Tobacco use

== ENCOUNTER 2019-09-05 00:13 | Emergency (ER) | payer OTHER ==
[~2019-09-05] VITALS: Ht 167.6 cm; Wt 59.1 kg
[2019-09-05 00:22] VITALS: BP 142/78; Ht 167.6 cm; Wt 59.1 kg
[2019-09-05] MEDS ORDERED: IBUPROFEN800 MG PO (00:28)
[2019-09-05] MEDS ORDERED: ACETAMINOPHEN500 M1 PO (21:22)
[2019-09-05] MEDS ORDERED: CENTRUM SILVER1 EAC3 PO (21:22)
== END 2019-09-05 00:45 | disposition home or self-care (01) ==
LOC: D.ER 00:13
DX: M79.10 Myalgia, unspecified site (principal); S86.919A Strain of unspecified muscle(s) and tendon(s) at lower leg level, unspecified leg, initial encounter; X58.XXXA Exposure to other specified factors, initial encounter; Y93.02 Activity, running; I10 Essential (primary) hypertension; E11.9 Type 2 diabetes mellitus without complications; Z79.84 Long term (current) use of oral hypoglycemic drugs; K21.9 Gastro-esophageal reflux disease without esophagitis

== ENCOUNTER 2019-09-05 20:55 | Emergency (ER) | payer OTHER ==
[~2019-09-05] VITALS: Ht 167.6 cm; Wt 59.1 kg
[2019-09-05 00:22] VITALS: Ht 167.6 cm; Wt 59.1 kg
[2019-09-05 21:00] VITALS: BP 150/80
[2019-09-05] MEDS ORDERED: CENTRUM SILVER1 EAC3 PO (21:22)
[2019-09-05] MEDS ORDERED: ACETAMINOPHEN500 M1 PO (21:22)
== END 2019-09-05 21:37 | disposition home or self-care (01) ==
LOC: D.ER 20:55
DX: Z76.5 Malingerer [conscious simulation] (principal); R51 Headache; M79.18 Myalgia, other site; E11.9 Type 2 diabetes mellitus without complications; Z79.84 Long term (current) use of oral hypoglycemic drugs; I10 Essential (primary) hypertension; K21.9 Gastro-esophageal reflux disease without esophagitis

== ENCOUNTER 2019-09-07 03:45 | Emergency (ER) | payer OTHER ==
[~2019-09-07] VITALS: Ht 167.6 cm; Wt 75.0 kg
[~2019-09-07 03:45] MED LIST changes: +ACETAMINOPHEN500 M1 PO; +CENTRUM SILVER1 EAC3 PO
[2019-09-07 04:11] VITALS: BP 134/74; Ht 167.6 cm; Wt 75.0 kg
== END 2019-09-07 05:00 | disposition home or self-care (01) ==
LOC: D.ER 03:45
DX: Z71.1 Person with feared health complaint in whom no diagnosis is made (principal); Z76.5 Malingerer [conscious simulation]; E11.9 Type 2 diabetes mellitus without complications; I10 Essential (primary) hypertension; Z79.84 Long term (current) use of oral hypoglycemic drugs; K21.9 Gastro-esophageal reflux disease without esophagitis

== ENCOUNTER 2019-09-08 15:55 | Emergency (ER) | payer OTHER ==
[~2019-09-08] VITALS: Ht 167.6 cm; Wt 54.5 kg
[2019-09-08 16:09] VITALS: Ht 167.6 cm; Wt 54.5 kg
[2019-09-08 16:30] VITALS: BP 142/89
== END 2019-09-08 16:30 | disposition home or self-care (01) ==
LOC: D.ER 15:55
DX: Z76.5 Malingerer [conscious simulation] (principal); E11.9 Type 2 diabetes mellitus without complications; I10 Essential (primary) hypertension; K21.9 Gastro-esophageal reflux disease without esophagitis; Z79.84 Long term (current) use of oral hypoglycemic drugs

== ENCOUNTER 2019-09-08 21:05 | Emergency (ER) | payer OTHER ==
[2019-09-08 16:09] VITALS: BMI 19.4
== END 2019-09-08 21:37 | disposition left against medical advice (07) ==
LOC: D.ER 21:05
DX: J11.1 Influenza due to unidentified influenza virus with other respiratory manifestations (principal)

== ENCOUNTER 2019-09-08 23:45 | Emergency (ER) | payer OTHER ==
[~2019-09-08] VITALS: Ht 167.6 cm; Wt 70.5 kg
[2019-09-08 23:52] VITALS: Ht 167.6 cm; Wt 70.5 kg
== END 2019-09-08 23:57 | disposition left against medical advice (07) ==
LOC: D.ER 23:45
DX: E11.9 Type 2 diabetes mellitus without complications (principal)

== ENCOUNTER 2019-09-09 17:21 | Emergency (ER) | payer OTHER ==
[2019-09-09 17:26] VITALS: Ht 167.6 cm
[2019-09-09 17:35] VITALS: BP 144/60
== END 2019-09-09 17:36 | disposition home or self-care (01) ==
LOC: D.ER 17:21
DX: Z76.5 Malingerer [conscious simulation] (principal); E11.9 Type 2 diabetes mellitus without complications; I10 Essential (primary) hypertension; Z79.84 Long term (current) use of oral hypoglycemic drugs

== ENCOUNTER 2019-09-09 19:48 | Emergency (ER) | payer OTHER ==
[~2019-09-09] VITALS: Ht 167.6 cm; Wt 72.7 kg
[2019-09-09 19:54] VITALS: BP 156/88; Ht 167.6 cm; Wt 72.7 kg
== END 2019-09-09 21:12 | disposition home or self-care (01) ==
LOC: D.ER 19:48
DX: Z76.5 Malingerer [conscious simulation] (principal); E11.9 Type 2 diabetes mellitus without complications; I10 Essential (primary) hypertension; Z72.0 Tobacco use; Z79.84 Long term (current) use of oral hypoglycemic drugs

== ENCOUNTER 2019-09-10 06:27 | Emergency (ER) | payer OTHER ==
[~2019-09-10] VITALS: Ht 167.6 cm; Wt 81.8 kg
[2019-09-10 06:32] VITALS: Ht 167.6 cm; Wt 81.8 kg
[2019-09-10 07:02] VITALS: BP 149/86
== END 2019-09-10 07:04 | disposition home or self-care (01) ==
LOC: D.ER 06:27
DX: J06.9 Acute upper respiratory infection, unspecified (principal); Z71.1 Person with feared health complaint in whom no diagnosis is made; E11.9 Type 2 diabetes mellitus without complications; I10 Essential (primary) hypertension; Z79.84 Long term (current) use of oral hypoglycemic drugs

== ENCOUNTER 2019-09-10 10:19 | Emergency (ER) | payer OTHER ==
[2019-09-10 10:40] VITALS: Ht 167.6 cm
== END 2019-09-10 10:41 | disposition home or self-care (01) ==
LOC: D.ER 10:19
DX: T73.0XXA Starvation, initial encounter (principal)

== ENCOUNTER 2019-09-25 21:01 | Emergency (ER) | payer OTHER ==
[~2019-09-25] VITALS: Ht 167.6 cm; Wt 72.7 kg
[2019-09-25 21:06] VITALS: Ht 167.6 cm; Wt 72.7 kg
[2019-09-25 22:20] VITALS: BP 136/89
== END 2019-09-25 22:21 | disposition home or self-care (01) ==
LOC: D.ER 21:01
DX: F20.9 Schizophrenia, unspecified (principal); E11.9 Type 2 diabetes mellitus without complications; I10 Essential (primary) hypertension; Z79.84 Long term (current) use of oral hypoglycemic drugs

== ENCOUNTER 2019-09-26 02:01 | Emergency (ER) | payer OTHER ==
[~2019-09-26] VITALS: Ht 167.6 cm; Wt 59.1 kg
[2019-09-26 02:09] VITALS: BP 161/91; Ht 167.6 cm; Wt 59.1 kg
== END 2019-09-26 02:25 | disposition home or self-care (01) ==
LOC: D.ER 02:01
DX: E11.9 Type 2 diabetes mellitus without complications (principal); Z59.0 Homelessness; I10 Essential (primary) hypertension; Z72.0 Tobacco use

== ENCOUNTER 2019-09-26 15:48 | Emergency (ER) | payer OTHER ==
[2019-09-26 02:09] VITALS: BMI 21.0
== END 2019-09-26 16:11 | disposition left against medical advice (07) ==
LOC: D.ER 15:48
DX: E11.9 Type 2 diabetes mellitus without complications (principal)

== ENCOUNTER 2019-09-27 00:16 | Emergency (ER) | payer OTHER ==
[~2019-09-27] VITALS: Ht 167.6 cm; Wt 54.5 kg
[2019-09-27 00:48] VITALS: BP 176/96; Ht 167.6 cm; Wt 54.5 kg
[2019-09-28] MEDS ORDERED: GLUCOPHAGE500 MG PO (19:06)
== END 2019-09-27 01:18 | disposition home or self-care (01) ==
LOC: D.ER 00:16
DX: R53.81 Other malaise (principal); Z59.0 Homelessness; E11.9 Type 2 diabetes mellitus without complications; I10 Essential (primary) hypertension; Z72.0 Tobacco use; Z79.84 Long term (current) use of oral hypoglycemic drugs; R09.89 Other specified symptoms and signs involving the circulatory and respiratory systems

== ENCOUNTER 2019-09-27 13:11 | Emergency (ER) | payer OTHER ==
[~2019-09-27] VITALS: Ht 167.6 cm; Wt 54.5 kg
[2019-09-27 13:18] VITALS: BP 164/88; Ht 167.6 cm; Wt 54.5 kg
[2019-09-28] MEDS ORDERED: GLUCOPHAGE500 MG PO (19:06)
== END 2019-09-27 13:59 | disposition home or self-care (01) ==
LOC: D.ER 13:11
DX: Z76.5 Malingerer [conscious simulation] (principal); E11.9 Type 2 diabetes mellitus without complications; I10 Essential (primary) hypertension; Z72.0 Tobacco use

== ENCOUNTER 2019-09-27 17:08 | Emergency (ER) | payer OTHER ==
[~2019-09-27] VITALS: Ht 167.6 cm; Wt 61.4 kg
[2019-09-27 17:13] VITALS: BP 150/94; Ht 167.6 cm; Wt 61.4 kg
[2019-09-28] MEDS ORDERED: GLUCOPHAGE500 MG PO (19:06)
== END 2019-09-27 17:25 | disposition left against medical advice (07) ==
LOC: D.ER 17:08
DX: E11.649 Type 2 diabetes mellitus with hypoglycemia without coma (principal); F20.9 Schizophrenia, unspecified; I10 Essential (primary) hypertension; Z76.0 Encounter for issue of repeat prescription; Z79.84 Long term (current) use of oral hypoglycemic drugs

== ENCOUNTER 2019-09-28 00:46 | Emergency (ER) | payer OTHER ==
[~2019-09-28] VITALS: Ht 167.6 cm; Wt 55.0 kg
[2019-09-28 00:49] VITALS: BP 161/86; Ht 167.6 cm; Wt 55.0 kg
[2019-09-28] MEDS ORDERED: GLUCOPHAGE500 MG PO (19:06)
== END 2019-09-28 02:23 | disposition home or self-care (01) ==
LOC: D.ER 00:46
DX: M25.562 Pain in left knee (principal); W19.XXXA Unspecified fall, initial encounter; Y93.9 Activity, unspecified; Y92.9 Unspecified place or not applicable; Z59.0 Homelessness; E11.9 Type 2 diabetes mellitus without complications; I10 Essential (primary) hypertension; Z72.0 Tobacco use; Z79.84 Long term (current) use of oral hypoglycemic drugs

== ENCOUNTER 2019-09-28 17:57 | Emergency (ER) | payer OTHER ==
[~2019-09-28] VITALS: Ht 167.6 cm; Wt 50.0 kg
[2019-09-28 18:23] VITALS: Ht 167.6 cm; Wt 50.0 kg
[2019-09-28] MEDS ORDERED: GLUCOPHAGE500 MG PO (19:06)
[2019-09-28 19:25] VITALS: BP 135/78
== END 2019-09-28 19:25 | disposition home or self-care (01) ==
LOC: D.ER 17:57
DX: Z76.0 Encounter for issue of repeat prescription (principal); E11.9 Type 2 diabetes mellitus without complications; Z79.84 Long term (current) use of oral hypoglycemic drugs; I10 Essential (primary) hypertension; Z72.0 Tobacco use

== ENCOUNTER 2019-09-29 00:26 | Emergency (ER) | payer OTHER ==
[~2019-09-29] VITALS: Ht 167.6 cm; Wt 72.6 kg
[2019-09-29 00:31] VITALS: BP 132/87; Ht 167.6 cm; Wt 72.6 kg
== END 2019-09-29 00:40 | disposition home or self-care (01) ==
LOC: D.ER 00:26
DX: Z76.5 Malingerer [conscious simulation] (principal); R12 Heartburn; E11.9 Type 2 diabetes mellitus without complications; I10 Essential (primary) hypertension; Z79.84 Long term (current) use of oral hypoglycemic drugs

== ENCOUNTER 2019-09-29 02:33 | Emergency (ER) | payer OTHER ==
[~2019-09-29] VITALS: Ht 167.6 cm; Wt 54.5 kg
[2019-09-29 02:43] VITALS: BP 158/88; Ht 167.6 cm; Wt 54.5 kg
== END 2019-09-29 05:12 | disposition home or self-care (01) ==
LOC: D.ER 02:33
DX: Z76.5 Malingerer [conscious simulation] (principal); R51 Headache; Z76.0 Encounter for issue of repeat prescription; Z91.19 Patient's noncompliance with other medical treatment and regimen; Z59.0 Homelessness; E11.9 Type 2 diabetes mellitus without complications; I10 Essential (primary) hypertension; Z72.0 Tobacco use; Z79.84 Long term (current) use of oral hypoglycemic drugs

== ENCOUNTER 2019-09-30 03:42 | Emergency (ER) | payer OTHER ==
[~2019-09-30] VITALS: Ht 167.6 cm; Wt 68.2 kg
[2019-09-30 03:52] VITALS: BP 162/93; Ht 167.6 cm; Wt 68.2 kg
== END 2019-09-30 03:57 | disposition home or self-care (01) ==
LOC: D.ER 03:42
DX: Z76.5 Malingerer [conscious simulation] (principal); E11.9 Type 2 diabetes mellitus without complications; I10 Essential (primary) hypertension; Z79.84 Long term (current) use of oral hypoglycemic drugs

== ENCOUNTER 2019-09-30 06:22 | Emergency (ER) | payer OTHER ==
[~2019-09-30] VITALS: Ht 167.6 cm; Wt 68.2 kg
[2019-09-30 06:38] VITALS: BP 169/89; Ht 167.6 cm; Wt 68.2 kg
== END 2019-09-30 06:42 | disposition home or self-care (01) ==
LOC: D.ER 06:22
DX: Z76.5 Malingerer [conscious simulation] (principal); I10 Essential (primary) hypertension; E11.9 Type 2 diabetes mellitus without complications; Z79.84 Long term (current) use of oral hypoglycemic drugs

== ENCOUNTER 2019-09-30 20:13 | Emergency (ER) | payer OTHER ==
[~2019-09-30] VITALS: Ht 167.6 cm; Wt 61.4 kg
[2019-09-30 20:14] VITALS: Ht 167.6 cm; Wt 61.4 kg
[2019-09-30 20:47] VITALS: BP 169/99
== END 2019-09-30 20:47 | disposition home or self-care (01) ==
LOC: D.ER 20:13
DX: Z91.14 Patient's other noncompliance with medication regimen (principal); I10 Essential (primary) hypertension; Z76.5 Malingerer [conscious simulation]; E11.9 Type 2 diabetes mellitus without complications; Z79.84 Long term (current) use of oral hypoglycemic drugs; R53.1 Weakness

== ENCOUNTER 2019-10-04 20:34 | Emergency (ER) | payer OTHER ==
[~2019-10-04] VITALS: Ht 167.6 cm; Wt 68.2 kg
[2019-10-04 20:57] VITALS: Ht 167.6 cm; Wt 68.2 kg
[2019-10-05 01:20] VITALS: BP 155/86
== END 2019-10-05 01:20 | disposition home or self-care (01) ==
LOC: D.ER 20:34
DX: R53.81 Other malaise (principal); Z59.0 Homelessness; I10 Essential (primary) hypertension; E11.9 Type 2 diabetes mellitus without complications; Z79.84 Long term (current) use of oral hypoglycemic drugs

== ENCOUNTER 2019-10-05 10:18 | Emergency (ER) | payer OTHER ==
[~2019-10-05] VITALS: Ht 167.6 cm; Wt 50.0 kg
[2019-10-05 10:24] VITALS: BP 140/83; Ht 167.6 cm; Wt 50.0 kg
== END 2019-10-05 11:05 | disposition home or self-care (01) ==
LOC: D.ER 10:18
DX: Z76.5 Malingerer [conscious simulation] (principal); E11.9 Type 2 diabetes mellitus without complications; I10 Essential (primary) hypertension; Z76.0 Encounter for issue of repeat prescription; Z79.84 Long term (current) use of oral hypoglycemic drugs

== ENCOUNTER 2019-10-06 19:01 | Emergency (ER) | payer OTHER ==
[~2019-10-06] VITALS: Ht 167.6 cm; Wt 75.0 kg
[2019-10-06 19:24] VITALS: Ht 167.6 cm; Wt 75.0 kg
[2019-10-06 19:28] VITALS: BP 170/89
== END 2019-10-06 19:28 | disposition home or self-care (01) ==
LOC: D.ER 19:01
DX: Z76.5 Malingerer [conscious simulation] (principal); E11.9 Type 2 diabetes mellitus without complications; I10 Essential (primary) hypertension; Z79.84 Long term (current) use of oral hypoglycemic drugs

== ENCOUNTER 2019-10-07 00:16 | Emergency (ER) | payer OTHER ==
[~2019-10-07] VITALS: Ht 167.6 cm; Wt 50.0 kg
[2019-10-07 00:23] VITALS: BP 159/89; Ht 167.6 cm; Wt 50.0 kg
== END 2019-10-07 06:28 | disposition home or self-care (01) ==
LOC: D.ER 00:16
DX: Z59.0 Homelessness (principal); E11.9 Type 2 diabetes mellitus without complications; I10 Essential (primary) hypertension; Z79.84 Long term (current) use of oral hypoglycemic drugs

== ENCOUNTER 2019-10-07 10:46 | Emergency (ER) | payer OTHER ==
[~2019-10-07] VITALS: Ht 167.6 cm; Wt 50.0 kg
[2019-10-07 10:51] VITALS: Ht 167.6 cm; Wt 50.0 kg
[2019-10-07 10:56] VITALS: BP 162/89
== END 2019-10-07 10:56 | disposition home or self-care (01) ==
LOC: D.ER 10:46
DX: Z76.5 Malingerer [conscious simulation] (principal); J00 Acute nasopharyngitis [common cold]; E11.9 Type 2 diabetes mellitus without complications; I10 Essential (primary) hypertension; Z79.84 Long term (current) use of oral hypoglycemic drugs

== ENCOUNTER 2019-10-07 22:56 | Emergency (ER) | payer OTHER ==
[~2019-10-07] VITALS: Ht 167.6 cm; Wt 49.9 kg
[2019-10-07 23:00] VITALS: BP 165/92; Ht 167.6 cm; Wt 49.9 kg
[2019-10-09] MEDS ORDERED: CLARITIN 10 MG10 MG PO (06:35)
== END 2019-10-08 00:10 | disposition home or self-care (01) ==
LOC: D.ER 22:56
DX: J30.2 Other seasonal allergic rhinitis (principal); E11.9 Type 2 diabetes mellitus without complications; I10 Essential (primary) hypertension; Z72.0 Tobacco use; Z79.84 Long term (current) use of oral hypoglycemic drugs

== ENCOUNTER 2019-10-09 00:31 | Emergency (ER) | payer OTHER ==
[~2019-10-09] VITALS: Ht 167.6 cm; Wt 50.0 kg
[2019-10-09 00:35] VITALS: BP 151/96; Ht 167.6 cm; Wt 50.0 kg
[2019-10-09] MEDS ORDERED: CLARITIN 10 MG10 MG PO (06:35)
== END 2019-10-09 00:58 | disposition home or self-care (01) ==
LOC: D.ER 00:31
DX: Z59.0 Homelessness (principal); T73.0XXA Starvation, initial encounter; E11.9 Type 2 diabetes mellitus without complications; I10 Essential (primary) hypertension; Z72.0 Tobacco use; Z79.84 Long term (current) use of oral hypoglycemic drugs

== ENCOUNTER 2019-10-09 05:23 | Emergency (ER) | payer OTHER ==
[~2019-10-09] VITALS: Ht 167.6 cm; Wt 50.0 kg
[2019-10-09 05:29] VITALS: BP 152/98; Ht 167.6 cm; Wt 50.0 kg
[2019-10-09] MEDS ORDERED: CLARITIN 10 MG10 MG PO (06:35)
== END 2019-10-09 06:53 | disposition home or self-care (01) ==
LOC: D.ER 05:23
DX: J00 Acute nasopharyngitis [common cold] (principal); E11.9 Type 2 diabetes mellitus without complications; I10 Essential (primary) hypertension; Z72.0 Tobacco use; Z79.84 Long term (current) use of oral hypoglycemic drugs